=== PATIENT | female | born 1985 | race Caucasian/White ===

== ENCOUNTER 2018-08-02 13:22 | Inpatient (IN) ==
[2018-08-02 13:53] LABS: Basophils # (auto) 0.04 K/uL (0-0.2); Basophils % (auto) 0.3 %; Eosinophils % (auto) 1.3 %; Hematocrit (blood only) 33.4 % (37-47); Hemoglobin 11.5 g/dL (12.0-16.0); Immature Granulocytes # (auto) 0.26 K/uL (0.00-0.02); Immature Granulocytes % (auto) 1.7 %; Lymphocytes # (auto) 2.63 K/uL (1.2-3.4); Lymphocytes % (auto) 17.5 %; Mean Corpuscular Volume 86.5 fL (80-100); Mean Platelet Volume 9.8 fL (7.4-10.4); Monocytes # (auto) 1.17 K/uL (0.11-0.59); Monocytes % (auto) 7.8 %; Neutrophils # (auto) 10.77 K/uL (1.4-6.5); Neutrophils % (auto) 71.4 %; Platelet Count 367 K/uL (130-400); RDW Coefficient of Variation 14.3 % (11.5-14.5); RDW Standard Deviation 44.6 fL (36.4-46.3); Red Blood Count 3.86 M/uL (4.2-5.4); White Blood Count 15.07 K/uL (4.8-10.8)
[2018-08-02 13:56] LABS: Mean Corpuscular Hgb Conc 34.4 g/dL (32-36)
--- NOTE | 2018-08-02 14:01 | History & Physical Report ---
Date of Service August 02, 2018 Assessment & Plan (1) Hypertension affecting : Noelle is a 32-year-old who presents at 37+5 (estimated delivery date 08/18/2018) as a referral from the outpatient office for hypertension with known protein in the urine. She has had gestational proteinuria without hypertension on prior OB visits of the third trimester and was noted to have 1616 mg of protein over 24 hours at her 31-week check. - BP on admit after resting for >5 minutes is 147/88 - GBS positive, GDMDC, blood type A+, rubella immune. - Monitoring - Protein/Cr ratio urine - Check Transaminases (AST/ALT) - Check CBC/Plts - Observe on monitor for preeclampsia, follow BP over next 4 hours - No ocular or RUQ clinical symptoms at this time (2) Proteinuria affecting : (3) 37 weeks gestation of : History of Present Illness Primary Care Provider: Teja Brady Noelle is a 32-year-old who presents at 37+5 (estimated delivery date 08/18/2018) as a referral from the outpatient office for hypertension with known protein in the urine. She has had gestational proteinuria without hypertension on prior OB visits of the third trimester and was noted to have 1616 mg of protein over 24 hours at her 31-week check. GBS positive, GDMDC, blood type A+, rubella immune. She reports over the last 3 days she has had increased swelling bilaterally in her lower legs, feet, and ankles. She is also had some feelings of increased cramping in her legs bilaterally. She denies any headache. She endorses some visual floaters, but no flashers or change in visual acuity. She denies right upper quadrant pain. Endorses nausea once to twice per day without vomiting. Denies numbness, tingling. She denies vaginal bleeding. She notes a slight change in increase in her vaginal discharge over the last few days which has become slightly more green and mucousy. She notes she was recently treated for UTI, is no longer on antibiotic treatment. She is felt slightly decreased movement over the last few days, but notes she has felt at least 10 movements per hour. Endorses some cramping, but no contractions. She last ate a few hours ago, just before presentation to clinic. PMHx: She is a past medical history of gestational diabetes diet-controlled, group B strep positive, tobacco abuse, and recent UTI. She denies any history of other medical problems including asthma, migraines, hypertension, clotting/bleeding disorders. Her gestational diabetes is diet controlled, she checks her sugars 1 hour past meals notes that they are in the 130s lately. SHX: [place] teeth extraction. No history of reactions to anesthesia. No other surgeries. She takes a vitamin and Zyrtec daily. No other medications. No known drug allergies. No food allergies. She is an active smoker, has cut down to about 1/2 pack/day. Denies alcohol or recreational substance use including marijuana and cocaine. Allergies Allergy/AdvReac Type Severity Reaction Status Date / Time No Known Allergies Allergy Unverified 08/02/18 13:51 Home Medications Home Medications Medication Instructions Recorded Confirmed Type PNV cmb#95-ferrous fumarate-FA 1 tab PO DAILY 08/02/18 08/02/18 History [] cetirizine [Zyrtec] 10 mg PO DAILY 08/02/18 08/02/18 History Patient History Medical History Constipation Gestational diabetes diet controlled Gestational proteinuria H/O wisdom tooth extraction as a teenager Urinary tract infection Had in begining of Social History Preferred Language: Italian Hat Marker Required: No Beliefs That Will Affect Care: None marital status: Current Living Situation: Spouse Current Living Situation Comment: lives with and his 9 year old daughter (shared custody) Other Information That Helps Us Care for You: No Feels Safe at Home: Yes Safety Concerns: Feels Safe At This Time Smoking Status: Current every day smoker Tobacco Type: cigarettes Cigarettes Per Day: 5-8 Hx Alcohol Use: No Hx Substance Use: No Review of Systems no fever, no chills, no body aches and no weakness + spots in vision (Occasional dark floaters); no blind spots, no diplopia, not seeing flashes and no worsening vision no ear pain, no nasal congestion, no sinus pain/pressure, no sore throat, no dysphagia and no problem reported no cough, no chest congestion, no dyspnea, no pain on inspiration, no pain with cough and no sputum production + edema; no chest pain, no chest pain at rest, no chest pain with activity, no dyspnea, no orthopnea, no palpitations, no lightheadedness, no syncope and no calf pain + nausea; no abdominal pain, no vomiting, no constipation and no diarrhea/loose stools no dysuria, no difficulty urinating and no vaginal itching + back pain; no neck pain, no myalgia, no muscle weakness and no body aches no rash, no lesions, no new lesions and no changing lesions + tingling (intermittent tingling x3 days with swelling in her feet); no gait abnormality, no localized weakness, no loss of sensation, no numbness, no paresthesia, no dizziness, no headache(s) and no confusion no flushing no easy bleeding, no easy bruising and no night sweats Physical Exam Physical Exam: General: A&Ox3. NAD. Cooperative. No skin lesions/bruising/petechiae. HEENT: Atraumatic, normocephalic. Pulm: CTAB A&P. -wheezes, -rales, -rhonchi. Symmetrical chest rise. No increase work of breathing. No respiratory distress. Cardiac: RRR, -mrg. Radial pulses intact and symmetrical. Abdominal: Nontender, distention consistent with third trimester of . No RUQ tenderness. Extremities: Bilateral pedal, ankle, distal calf edema. No warmth, erythema, tenderness to palpation, or asymmetry. Neuro: Pupils equal and reactive to light and accommodation bilaterally. Visual acuity grossly intact. Extraocular movements intact. No facial asymmetry. Facial sensation intact in all distributions. Sensation to soft touch intact in all 4 distal extremities without asymmetry. Patellar and biceps DTR 2+ bilaterally. Cyber Software Engineer strength, elbow flexion 5/5. Dorsiflexion/plantar flexion 5/5. cervix exam: 3cm/80%/-1 soft/ posterior Results & Data Vital Signs (Past 12 Hours) Vital Signs Pulse BP 08/02/18 13:36 83 147/88 H Monitoring External Monitor Category 1 tracing. Baseline approximately 145 bpm. Moderate variability. Accelerations present, no decelerations noted. Tocodynamometer No regular contractions. Supervising Physician Co-Signing Physician Notes Resident Physician Supervision Note: I interviewed and examined the patient. Discussed with Dr. Solomon Hawkins PGY1 and agree with findings and plan as documented in the note. Any exceptions or clarifications are listed here: Because systolics are all consistently over 140. PIH labs are all normal .so meets criteria for mild pre-eclampsia and we will begin IOL. Documented By: Jane Riojas MD, FACOG
[2018-08-02 14:09] LABS: Alanine Aminotransferase 15 U/L (12-78); Aspartate Aminotransferase 9 U/L (15-37); Est GFR (African American) 137.4; Est GFR (Non-African American) 118.5
[2018-08-02 15:12] LABS: Creatinine Urine Random 49.9 mg/dl
[2018-08-02 15:13] LABS: Total Protein Urine Random 432.5 mg/dl (0-11.9)
[2018-08-02] MEDS ORDERED: OXYTOCIN 30 UNITS/500 ML BAG IV PRN ×2 (15:17→15:20)
[2018-08-02] MEDS: LACTATED RINGER'S 1,000 ML IV PRN ×2 (15:30→21:23)
[2018-08-02] MEDS ORDERED: PENICILLIN G POTASSIUM 6 MU in DEXTROSE 5% 250 ML IV ONE (15:30)
[2018-08-02] MEDS: PENICILLIN G POTASSIUM 3 MU in DEXTROSE 5% 100 ML IV PRN ×2 (19:55→23:54)
[2018-08-02] MEDS ORDERED: ePHEDrine sulfate 50 MG/ML AMP ONE (21:04)
[2018-08-02] MEDS ORDERED: BUPIVACAINE 0.25% 30 ML VIAL ONE (21:04)
[2018-08-02] MEDS ORDERED: fentaNYL citrate 100 MCG/2 ML VIAL ONE (21:05)
[2018-08-02] MEDS ORDERED: fentaNYL 2MCG/ML ROPIV 1.25MG/ML 100 ML BAG EPI ONE (21:05)
--- NOTE | 2018-08-02 21:23 | Anesthesiology Consultation ---
Date of Service August 02, 2018 Assessment & Plan Chart Review Chart Review: Patient NOT seen in Pre Admission Testing and Acceptable Risk for Labor Epidural Consults Requested none ASA ASA3 Proposed Anesthesia Anesthesia Type: Labor Epidural and CSE Risk / Benefits Reviewed With: PT / POA / Parent / Guardian, Accepts Plan and Informed Consent Obtained History Height/Weight Height: 5 ft 4 in Weight: 104.383 kg Allergies Allergy/AdvReac Type Severity Reaction Status Date / Time No Known Allergies Allergy Unverified 08/02/18 13:51 Medications Home Medications Medication Instructions Recorded Confirmed Last Taken PNV cmb#95-ferrous fumarate-FA 1 tab PO DAILY 08/02/18 08/02/18 08/01/18 23:00 [] cetirizine [Zyrtec] 10 mg PO DAILY 08/02/18 08/02/18 08/01/18 23:00 Active Medications Generic Name Dose Route Start Last Admin Trade Name Freq PRN Reason Stop Dose Admin Oxytocin 30 units in 500 mls @ 1 mls/hr 08/02/18 15:20 08/02/18 21:18 Pitocin IV 08/04/18 15:19 0.06 units/hr .Q24H PRN 1 mls/hr Labor Induction/Augmentation Administration Protocol 0.06 UNITS/HR Lactated Ringer's 1,000 mls @ 125 mls/hr 08/02/18 15:17 08/02/18 21:23 Lr IV 08/04/18 15:16 999 mls/hr .Q8H PRN Administration L&D Protocol Protocol Penicillin G Potassium 3 mu/ 106 mls @ 100 mls/hr 08/02/18 15:17 08/02/18 20:59 Dextrose IV 08/12/18 15:16 Infused Q4H PRN Infusion Give until delivery NPO Date Last Intake of Fluids: 08/02/18 Time Last Intake of Fluids: 20:30 Date Last Intake of Solids: 08/02/18 Time Last Intake of Solids: 12:00 Past Medical History Medical History Constipation Gestational diabetes diet controlled Gestational proteinuria Urinary tract infection Had in begining of Exercise / Class Metabolic Activity II 4-5 Yardwork/Stairs/Walk up hill Past Surgical History Surgical History H/O wisdom tooth extraction as a teenager Past Anesthesia History No Hx of Anesthesia Complications and No Family Hx of Anesthesia Complications History of PONV No Hx of PONV Social History Smoking Status: Current every day smoker tobacco type: cigarettes Smoking cigarettes per day: 5-8 Hx Alcohol Use: No Hx Substance Use: No substance use type: does not use Review of Systems no chest pain or sob Physical Exam Vital Signs Last Vital Signs Temp 36.9 C 08/02/18 19:05 Pulse 75 08/02/18 21:20 Resp 20 08/02/18 19:05 BP 132/63 08/02/18 20:21 Pulse Ox 97 08/02/18 21:20 Constitutional + morbidly obese ENMT Mouth: no TMJ abnormality Thyromental Distance: > or= 3.5 Finger Breadths Mallampati Class: II Neck normal visual inspection and + thick neck Respiratory normal respiratory effort Auscultation: lungs clear to auscultation bilaterally Cardiovascular Rate/Rhythm: regular rate and regular rhythm Musculoskeletal Spine: normal cervical ROM Neurologic moves all extremities Psychiatric Orientation: alert and oriented x 3 Testing Laboratory Results WBC 15 Hgb 11.5 plt 367
[2018-08-02] MEDS ORDERED: ONDANSETRON INJ 2 MG/ML 2 ML VIAL IV PRN (21:44)
[2018-08-02] MEDS ORDERED: DiphenhydrAMINE HCL 50 MG/ML VIAL IV PRN (21:44)
[2018-08-02] MEDS ORDERED: fentaNYL 2MCG/ML ROPIV 1.25MG/ML 100 ML BAG EPI PRN (21:44)
[2018-08-02] MEDS ORDERED: ePHEDrine sulfate 50 MG/ML AMP IV PRN (21:44)
[2018-08-02] MEDS ORDERED: NALOXONE HCL 0.4 MG/1 ML VIAL/CARP IV PRN (21:44)
[2018-08-02] MEDS ORDERED: NALOXONE HCL 1 MG in SODIUM CHLORIDE 0.9% 1000ML 1,000 ML IV PRN (21:44)
[2018-08-02] MEDS ORDERED: NALBUPHINE HCL INJ 10 MG/ML AMP IV PRN (21:44)
[2018-08-03] MEDS: PENICILLIN G POTASSIUM 3 MU in DEXTROSE 5% 100 ML IV PRN ×2 (03:56→08:21)
[2018-08-03] MEDS: LACTATED RINGER'S 1,000 ML IV PRN ×2 (04:54→09:29)
--- NOTE | 2018-08-03 10:34 | Procedure Note ---
Vaginal Delivery Summary Date of Service August 03, 2018 Vaginal Delivery Summary Vaginal Delivery Summary: Pre-delivery diagnoses: 32yo @ 37 6/7, preeclampsia with mild features, GBS+, GDMA1 Post-delivery diagnoses: same Procedure: Spontaneous vaginal delivery, repair of 1st degree perineal laceration Surgeon: Sandra Renteria DO Complications: none Findings: Viable . Apgars: 7/9. Weight pending, please see nursery records Estimated blood loss: 300ml Description of delivery: The patient progressed to complete with epidural anesthesia. She then began to push. She spontaneously vaginally delivered a viable from the cephalic presentation. The head delivered in EMILEE position. The anterior shoulder delivered, followed by the posterior shoulder, followed by the body. No nuchal cord noted. The baby was placed on mother's abdomen and a spontaneous cry was heard. Delayed cord clamping was employed, and the cord was doubly clamped and cut. A segment was retained for cord gases. Cord blood was obtained. The placenta was delivered spontaneously intact with a 3-vessel cord. The uterus and vagina were swept of clots and debris. IV pitocin was given. The uterus became firm. The cervix, vagina, and perineum were inspected and a first degree perineal lacerations was noted and repaired in standard fashion. Excellent hemostasis was observed. The mother and baby are recovering in stable and good condition in the room. Sponge, needle, and instrument counts were correct x 2. Sandra Renteria DO [facility] [place]
--- NOTE | 2018-08-03 11:03 | Anesthesia Procedure Note ---
Date of Service August 03, 2018 Anesthesia Post Epidural Note Vital Signs Vital Signs: Temp Pulse Resp BP Pulse Ox 37.2 C 82 22 152/82 H 97 08/03/18 08:02 08/03/18 10:53 08/03/18 08:02 08/03/18 10:53 08/03/18 10:05 Notes Mental Status: alert / awake / arousable and participated in evaluation Nausea / Vomiting: adequately controlled Pain: adequately controlled Airway Patency, RR, SpO2: stable & adequate BP & HR: stable & adequate Hydration State: stable & adequate Neuraxial Anesthesia: was administered and sensory block is resolving Anesthetic Complications: no major complications apparent Epidural: Removed without complications and With tip intact
[2018-08-03] MEDS ORDERED: OXYCODONE/ACETAMINOPHEN 5mg/325mg TAB PO PRN (11:05)
[2018-08-03] MEDS ORDERED: BISACODYL 10 MG SUPP PR PRN (11:05)
[2018-08-03] MEDS ORDERED: SUPERCREAM 0.870% 15 GM JAR EXT PRN (11:05)
[2018-08-03] MEDS ORDERED: IBUPROFEN 600 MG TAB PO PRN (11:05)
[2018-08-03] MEDS ORDERED: HYDROCORTISONE ACETATE 25 MG SUPP PR PRN (11:05)
[2018-08-03] MEDS ORDERED: ACETAMINOPHEN 325 MG TAB PO PRN (11:05)
[2018-08-03] MEDS ORDERED: OXYTOCIN 30 UNITS/500 ML BAG IV PRN (11:05)
[2018-08-03] MEDS ORDERED: BENZOCAINE 20% AER SPR 82.5 GM CAN EXT PRN (11:05)
[2018-08-03] MEDS: DOCUSATE SODIUM 100 MG CAP PO SCH (21:08)
[2018-08-04 06:34] LABS: Hematocrit (blood only) 28.9 % (37-47); Hemoglobin 9.8 g/dL (12.0-16.0); Mean Corpuscular Hgb Conc 33.9 g/dL (32-36); Mean Platelet Volume 9.9 fL (7.4-10.4); Platelet Count 279 K/uL (130-400); RDW Coefficient of Variation 14.3 % (11.5-14.5); RDW Standard Deviation 45.3 fL (36.4-46.3); Red Blood Count 3.32 M/uL (4.2-5.4)
[2018-08-04 06:58] LABS: Albumin Level 1.7 gm/dl (3.4-5.0); Calcium 8.8 mg/dl (8.5-10.1); Creatinine Clr Calc Pharmacy 182.7 ml/min; Est GFR (African American) 147.7; Est GFR (Non-African American) 127.4; Potassium 3.8 mmol/L (3.5-5.1)
[2018-08-04 07:00] LABS: Albumin Globulin Ratio 0.5 (0.9-2); Bilirubin,Total 0.2 mg/dl (0.2-1); Globulin 3.5 gm/dl (2.5-4.0); Total Protein 5.2 gm/dl (6.4-8.2)
[2018-08-04] MEDS: DOCUSATE SODIUM 100 MG CAP PO SCH ×2 (08:49→21:01)
[2018-08-04] MEDS: PRENATAL VITAMIN 1 TAB PO SCH (08:50)
[2018-08-04] MEDS: CETIRIZINE HCL 10 MG TABLET PO SCH (08:50)
[2018-08-04] MEDS ORDERED: DIPHTHERIA/TETANUS/PERTUSSIS 0.5 ML SYR/VIAL IM ONE (09:00)
--- NOTE | 2018-08-04 09:00 | Obstetrical Progress Note ---
Date of Service August 04, 2018 Assessment & Plan (1) Vaginal delivery: PPD#1 doing well. Plan for DC home tomorrow. Continue routine care. Subjective Ambulation: ambulating normally Voiding: no voiding problems Diet Tolerance:: regular diet Lochia:: Moderate Feeding Type:: breast feeding Physical Exam Constitutional WD/WN, vitals as above no acute distress Respiratory normal respiratory effort Cardiovascular Rate/Rhythm: regular rate and regular rhythm Gastrointestinal (Abdomen) Inspection/Auscultation: abdomen normal to inspection; abdomen not distended Percussion/Palpation: abdomen soft Genitourinary OB Exam Abdomen: + fundal height Fundus: + firm; not tender Results & Data Vital Signs (Past 12 Hours) Vital Signs Temp Pulse Resp BP Pulse Ox 08/04/18 07:35 36.9 C 84 16 129/79 96 08/04/18 03:20 36.6 C 78 24 138/80 95 08/03/18 23:15 36.7 C 76 20 125/80 97
[2018-08-04] MEDS ORDERED: BISACODYL 5 MG TABEC PO SCH (20:00)
--- NOTE | 2018-08-05 06:48 | Obstetrical Progress Note ---
Date of Service <Lopez Sheba Mueller DO - Last Filed: 08/05/18 06:51> August 05, 2018 Assessment & Plan <Lopez Sheba Mueller DO - Last Filed: 08/05/18 06:51> (1) (spontaneous vaginal delivery): -vital signs reviewed and WNL -last Hgb 9.8 --> ferrous sulfate ordered -Blood type: A+, GBS+, Rubella Immune -pt doing well clinically -encourage ambulation, monitor and control pain with motrin tylenol, cont regular diet, monitor lochia -cont encourage breast/bottle feeding -plan for d/c today Subjective <Lopezsheeba Mueller DO - Last Filed: 08/05/18 06:51> 33 y/o PPD2 found in bed this morning in NAD. Reports no acute overnight events. Pt states that she has no pain other than appropriate soreness. Tolerating PO intake without N/V. Able to ambulate without issue. She is bottle feeding without issue. No issues with voiding, has had a BM which was normal, passing gas. No other acute concerns or complaints. Review of Systems All systems reviewed & are unremarkable except as noted in HPI & below Physical Exam <Lopezsheeba Mueller DO - Last Filed: 08/05/18 06:51> Constitutional WD/WN, vitals as above Respiratory normal respiratory effort, lungs clear to auscultation Cardiovascular RRR, no murmur, no edema Gastrointestinal (Abdomen) mild abd tenderness Difficulty ascertaining fundus height, please defer to attending note Skin no rashes, warm and dry Psychiatric A+Ox3, euthymic affect Lymphatic no LE swelling, no calf tenderness Results & Data <Lopez Sheba Mueller, DO - Last Filed: 08/05/18 06:51> Vital Signs (Past 12 Hours) Vital Signs Temp Pulse Resp BP Pulse Ox 08/04/18 23:00 36.7 C 76 20 128/84 98 08/04/18 19:00 36.7 C 88 20 131/82 99 Laboratory Results Laboratory Results - last 24 hr 08/04/18 06:23 Sodium 140 Potassium 3.8 Chloride 111 H Carbon Dioxide 23 Anion Gap 6.0 BUN 11 Creatinine 0.53 L Est Cr Clr Drug Dosing 182.7 Est GFR ( Amer) 147.7 Est GFR (Non-Af Amer) 127.4 BUN/Creatinine Ratio 20.0 Glucose 76 Calcium 8.8 Total Bilirubin 0.2 AST 15 ALT 12 Alkaline Phosphatase 70 Total Protein 5.2 L Albumin 1.7 L Globulin 3.5 Albumin/Globulin Ratio 0.5 L Medications Administered Current Inpatient Medications Acetaminophen (Tylenol) 650 mg PO Q6H PRN PRN Reason: Pain/GAN/Fever Stop: 09/02/18 11:04 Benzocaine (Dermoplast Pain Relieving [place]) 1 appln EXT PRN PRN PRN Reason: Perineal Discomfort Stop: 09/02/18 11:04 Last Admin: 08/03/18 22:49 Dose: 1 appln Documented by: Bisacodyl (Dulcolax) 10 mg TX DAILY PRN PRN Reason: No BM on 2nd post- day Stop: 09/02/18 11:04 Cetirizine HCl (Zyrtec) 10 mg PO DAILY [facility] Stop: 09/03/18 08:59 Last Admin: 08/04/18 08:50 Dose: 10 mg Documented by: Cocaine HCl (Supercream 0.870%) 1 gm EXT BID PRN PRN Reason: Hemorrhoidal Inflammation Stop: 08/17/18 11:04 Last Admin: 08/03/18 22:49 Dose: 1 appln Documented by: Docusate Sodium (Colace) 100 mg PO BID [facility] Stop: 09/02/18 20:59 Last Admin: 08/04/18 21:01 Dose: 100 mg Documented by: Hydrocortisone (Anusol Hc) 25 mg TX BID PRN PRN Reason: Hemorrhoidal Inflammation Stop: 09/02/18 11:04 Oxytocin (Pitocin) 30 units in 500 mls @ 333.333 mls/hr IV .Q1H30M PRN; Prot ocol PRN Reason: Bleeding Control Stop: 09/02/18 11:04 Ibuprofen (Motrin) 600 mg PO Q4H PRN PRN Reason: Pain/GAN/Cramping/Fever Stop: 09/02/18 11:04 Last Admin: 08/03/18 21:08 Dose: 600 mg Documented by: Oxycodone/Acetaminophen (Percocet 5mg/325mg) 1 tab PO Q4H PRN PRN Reason: Pain not relieved by... Stop: 08/17/18 11:04 Prenat Multivit/[place]/Iron/Folic Ac ( Vitamin) 1 tab PO QAM HEATHER Stop: 09/03/18 08:59 Last Admin: 08/04/18 08:50 Dose: 1 tab Documented by: <Sandra Renteria DO - Last Filed: 08/05/18 07:53> Co-Signing Physician Notes Resident Physician Supervision Note: I was present with Dr. Mueller during the history and exam. I discussed the case with the resident and agree with the findings and plan as documented in the note. Any exceptions or clarifications are listed here: PPD#2 doing well. Elevated BP this AM, but other blood pressures have been normal. Will recheck before discharge. Patient to followup in office in 1 week for BP check. Documented By: Sandra Renteria DO Resident Activity Tracking <Lopez Mueller DO - Last Filed: 08/05/18 06:51> Resident Involvement: Resident Care Provided Care Provided: OB Delivery
[2018-08-05] MEDS: DOCUSATE SODIUM 100 MG CAP PO SCH (08:58)
[2018-08-05] MEDS: PRENATAL VITAMIN 1 TAB PO SCH (08:58)
[2018-08-05] MEDS: CETIRIZINE HCL 10 MG TABLET PO SCH (08:58)
[2018-08-05] MEDS ORDERED: FERROUS SULFATE 325 MG TAB PO SCH (09:00)
--- NOTE | 2018-08-08 04:25 | Communication Note ---
Date of Service: August 08, 2018 I was contacted by an ER physician in [place] notifying me that Noelle has just arrived to their ER with BP 190s/110s, symptom of upper abdominal / flank pain, creatinine 0.89 and uric acid 8.1. Platelets reportedly "in the 400s" and liver enzymes reportedly "normal." There is also some concern for pyelonephritis on a CT scan done there per this physician. They do not have OB services and she is obviously day 4; he asks to transfer the patient to our location for that reason. At this time the patient is in hypertensive urgency with likely severe preeclampsia. Her uric acid correlates with significant seizure risk and her BP is unstable / unsafe for transport. I recommended that he consult critical care at his location if he needed assistance with acute stabilization, and also talked him through some immediate measures to institute, including magnesium bolus/maintenance therapy and labetalol IV with recommended dose sequence. I asked that he contact us again once she is stable for transport with BP outside the severe range, magnesium therapy and symptom improvement, so that we can arrange that for her ongoing care.
== END 2018-08-05 18:29 | disposition home or self-care (01) | DRG 807 ==
LOC: OPB 13:22 → 4S1 13:24 → 4S2 08-03 12:00

== ENCOUNTER 2018-08-08 10:40 | Inpatient (IN) ==
[2018-08-08] MEDS ORDERED: LABETALOL HCL IV 5 MG/ML 20ML IV STA (10:48)
[2018-08-08] MEDS ORDERED: MAGNESIUM SULFATE 4GM / WTR 100 ML BAG IV ONE (10:53)
[2018-08-08 11:18] LABS: Hematocrit (blood only) 31.8 % (37-47); Hemoglobin 10.7 g/dL (12.0-16.0); Mean Corpuscular Volume 88.1 fL (80-100); Mean Platelet Volume 9.5 fL (7.4-10.4); Platelet Count 411 K/uL (130-400); RDW Coefficient of Variation 13.8 % (11.5-14.5); RDW Standard Deviation 44.7 fL (36.4-46.3); Red Blood Count 3.61 M/uL (4.2-5.4); White Blood Count 14.97 K/uL (4.8-10.8)
[2018-08-08] MEDS: LACTATED RINGER'S 1,000 ML IV PRN (11:25)
[2018-08-08 11:26] LABS: Mean Corpuscular Hgb Conc 33.6 g/dL (32-36)
[2018-08-08] MEDS: MAGNESIUM SULFATE / WTR 40 GM/1,000 ML BAG IV SCH (11:34)
[2018-08-08 11:42] LABS: Albumin Level 2.1 gm/dl (3.4-5.0); BUN Creatinine Ratio 19.5 (10-20); Calcium 9.2 mg/dl (8.5-10.1); Creatinine Clr Calc Pharmacy 120.7 ml/min; Est GFR (African American) 117.4; Est GFR (Non-African American) 101.3; Potassium 3.7 mmol/L (3.5-5.1)
[2018-08-08 11:45] LABS: Albumin Globulin Ratio 0.5 (0.9-2); Bilirubin,Total 0.2 mg/dl (0.2-1); Globulin 3.9 gm/dl (2.5-4.0)
--- NOTE | 2018-08-08 11:45 | History & Physical Report ---
Date of Service August 08, 2018 Assessment & Plan (1) Pre-eclampsia, severe, delivered: Admit to L&D. For BPs, will give labetalol if BP > 160/105. Patient already rec'd magnesium bolus, will restart mag at 2g/hr. Preeclampsia precautions - conway catheter, bedrest, clear liquids. Will check preeclampsia labs - CBC, CMP, uric acid. Check mag level. Will repeat these labs Q6h. Patient is afebrile, and low back pain has resolved, however will treat for suspicion of pyelonephritis with a dose of rocephin. Anticipate will give magnesium for 24h. History of Present Illness Chief Complaint: preeclampsia Primary Care Provider: Teja Brady 33yo PPD #4 presents as transfer from [facility]. She presented there yesterday evening with complaint of left lower back pain. On arrival there, she was found to have elevated BPs with systolics in 190s. She denied headache, RUQ pain. +lower extremity swelling. She underwent CT scan, which showed left perinephric fat stranding with urothelial hyperenhancement. She was diagnosed with pyelonephritis at [facility] and given a dose of IV cipro for treatment. Because of her blood pressures, apparently the ER at [facility] attempted to admit the patient to the internal medicine service, but neither the hospitalist nor the critical care physicians felt that she should be admitted to those services because she was . Therefore, the ER physician at [facility] asked Dr Olvera (last night's OBGYN on-call at [facility]) to accept the patient as transfer. Patient at the time was unable to be transferred due to unstable blood pressures, but was brought to [facility] this morning. She rec'd 4g bolus of magnesium at [facility] and then 2g/hr magnesium, IV labetalol for BP management. The magnesium was then stopped prior to transport. Patient's labs at [facility] 08/08 0140am are as follows: WBC 18.9, Hgb 10.8, Hct 32, Plt 374. Creatinine 0.8, AST 21, ALT 25, Mag 1.9, Uric Acid 8.1. Urinalysis protein 2+, blood 3+, no nitrites. Induction was performed for delivery 08/04/18 for preeclampsia without severe features. She delivered by spontaneous vaginal delivery, was discharged to home PPD#2. She is bottle feeding. Minimal lochia. Allergies Allergy/AdvReac Type Severity Reaction Status Date / Time No Known Allergies Allergy Unverified 08/02/18 13:51 Home Medications Home Medications Medication Instructions Recorded Confirmed Type PNV cmb#95-ferrous fumarate-FA 1 tab PO DAILY 08/02/18 08/08/18 History [] Zyrtec 10 mg PO DAILY 08/02/18 08/08/18 History Patient History Medical History Constipation Gestational diabetes diet controlled Gestational proteinuria Urinary tract infection Had in begining of Surgical History H/O wisdom tooth extraction as a teenager Social History Preferred Language: Turkish Communication Ability: Effective Beliefs That Will Affect Care: None marital status: Current Living Situation: Spouse Current Living Situation Comment: lives with and his 9 year old daughter (shared custody) Other Information That Helps Us Care for You: No Feels Safe at Home: Yes Safety Concerns: Feels Safe At This Time Smoking Status: Current some day smoker Tobacco Type: cigarettes Cigarettes Per Day: 5-8 Do You Dip or Chew Tobacco: No Second Hand Exposure: No Tobacco Cessation Education Requested by Patient: No Hx Alcohol Use: No Hx Substance Use: No Review of Systems All systems reviewed & are unremarkable except as noted in HPI & below Physical Exam Constitutional: WD/WN, vitals as above well developed and well nourished; no acute distress Respiratory: normal respiratory effort, lungs clear to auscultation Cardiovascular: RRR, no murmur, no edema Extremities: + pedal edema (1+ bilateral) Gastrointestinal (Abdomen): normal bowel sounds, soft, nontender, no hepatosplenomegaly Neurologic: patellar DTR's 2+ bilat, sensation intact No clonus. Psychiatric: A+Ox3, euthymic affect Results & Data Vital Signs (Past 12 Hours) Vital Signs Temp Pulse Resp BP 08/08/18 11:17 70 160/90 H 08/08/18 11:02 72 157/84 H 08/08/18 10:47 36.9 C 70 20 183/96 H
[2018-08-08] MEDS ORDERED: cefTRIAXone SODIUM 350 MG/ML IM IM ONE (12:04)
[2018-08-08] MEDS ORDERED: cefTRIAXone SODIUM 1,000 MG in SYRINGE 0 ML IM SCH (12:30)
[2018-08-08 17:43] LABS: Basophils # (auto) 0.04 K/uL (0-0.2); Basophils % (auto) 0.3 %; Eosinophils # (auto) 0.39 K/uL (0-0.5); Hematocrit (blood only) 31.3 % (37-47); Hemoglobin 10.9 g/dL (12.0-16.0); Immature Granulocytes # (auto) 0.16 K/uL (0.00-0.02); Immature Granulocytes % (auto) 1.2 %; Lymphocytes # (auto) 3.05 K/uL (1.2-3.4); Lymphocytes % (auto) 23.7 %; Mean Corpuscular Hgb Conc 34.8 g/dL (32-36); Mean Corpuscular Volume 86.7 fL (80-100); Mean Platelet Volume 9.7 fL (7.4-10.4); Monocytes # (auto) 0.94 K/uL (0.11-0.59); Monocytes % (auto) 7.3 %; Neutrophils # (auto) 8.27 K/uL (1.4-6.5); Neutrophils % (auto) 64.5 %; Platelet Count 404 K/uL (130-400); RDW Coefficient of Variation 13.8 % (11.5-14.5); RDW Standard Deviation 43.9 fL (36.4-46.3); Red Blood Count 3.61 M/uL (4.2-5.4); White Blood Count 12.85 K/uL (4.8-10.8)
[2018-08-08 18:09] LABS: Albumin Level 2.1 gm/dl (3.4-5.0); BUN Creatinine Ratio 19.6 (10-20); Calcium 8.9 mg/dl (8.5-10.1); Creatinine Clr Calc Pharmacy 149.5 ml/min; Est GFR (African American) 138.5; Est GFR (Non-African American) 119.5; Potassium 3.6 mmol/L (3.5-5.1)
[2018-08-08 18:12] LABS: Albumin Globulin Ratio 0.6 (0.9-2); Bilirubin,Total 0.2 mg/dl (0.2-1); Globulin 3.8 gm/dl (2.5-4.0); Total Protein 5.9 gm/dl (6.4-8.2)
[2018-08-08] MEDS ORDERED: ACETAMINOPHEN 500 MG TAB PO STA (20:27)
[2018-08-08 23:02] LABS: Basophils # (auto) 0.04 K/uL (0-0.2); Basophils % (auto) 0.3 %; Eosinophils # (auto) 0.45 K/uL (0-0.5); Eosinophils % (auto) 3.5 %; Hemoglobin 10.1 g/dL (12.0-16.0); Immature Granulocytes # (auto) 0.18 K/uL (0.00-0.02); Immature Granulocytes % (auto) 1.4 %; Lymphocytes % (auto) 24.3 %; Mean Corpuscular Hgb Conc 33.7 g/dL (32-36); Mean Corpuscular Volume 87.7 fL (80-100); Mean Platelet Volume 9.3 fL (7.4-10.4); Monocytes % (auto) 7.1 %; Neutrophils # (auto) 8.07 K/uL (1.4-6.5); Neutrophils % (auto) 63.4 %; Platelet Count 394 K/uL (130-400); RDW Coefficient of Variation 13.9 % (11.5-14.5); RDW Standard Deviation 45.1 fL (36.4-46.3); Red Blood Count 3.42 M/uL (4.2-5.4); White Blood Count 12.74 K/uL (4.8-10.8)
[2018-08-08 23:37] LABS: Albumin Globulin Ratio 0.5 (0.9-2); Albumin Level 1.9 gm/dl (3.4-5.0); BUN Creatinine Ratio 15.2 (10-20); Bilirubin,Total 0.1 mg/dl (0.2-1); Calcium 8.3 mg/dl (8.5-10.1); Creatinine Clr Calc Pharmacy 120.7 ml/min; Est GFR (African American) 117.4; Est GFR (Non-African American) 101.3; Globulin 3.8 gm/dl (2.5-4.0); Potassium 3.7 mmol/L (3.5-5.1); Total Protein 5.7 gm/dl (6.4-8.2)
[2018-08-09] MEDS: LACTATED RINGER'S 1,000 ML IV PRN (00:08)
[2018-08-09 05:42] LABS: Basophils # (auto) 0.03 K/uL (0-0.2); Basophils % (auto) 0.3 %; Eosinophils # (auto) 0.39 K/uL (0-0.5); Eosinophils % (auto) 3.6 %; Hematocrit (blood only) 30.6 % (37-47); Hemoglobin 10.2 g/dL (12.0-16.0); Immature Granulocytes # (auto) 0.12 K/uL (0.00-0.02); Immature Granulocytes % (auto) 1.1 %; Lymphocytes # (auto) 2.65 K/uL (1.2-3.4); Lymphocytes % (auto) 24.4 %; Mean Corpuscular Hgb Conc 33.3 g/dL (32-36); Mean Corpuscular Volume 87.2 fL (80-100); Mean Platelet Volume 9.6 fL (7.4-10.4); Monocytes # (auto) 0.76 K/uL (0.11-0.59); Neutrophils # (auto) 6.89 K/uL (1.4-6.5); Neutrophils % (auto) 63.6 %; Platelet Count 388 K/uL (130-400); RDW Coefficient of Variation 14.2 % (11.5-14.5); RDW Standard Deviation 45.2 fL (36.4-46.3); Red Blood Count 3.51 M/uL (4.2-5.4); White Blood Count 10.84 K/uL (4.8-10.8)
[2018-08-09 05:54] LABS: BUN Creatinine Ratio 14.7 (10-20); Creatinine Clr Calc Pharmacy 132.6 ml/min; Est GFR (African American) 131.5; Est GFR (Non-African American) 113.5; Potassium 3.7 mmol/L (3.5-5.1)
[2018-08-09 05:57] LABS: Albumin Globulin Ratio 0.5 (0.9-2); Bilirubin,Total 0.2 mg/dl (0.2-1); Globulin 3.7 gm/dl (2.5-4.0); Total Protein 5.7 gm/dl (6.4-8.2)
[2018-08-09] MEDS: MAGNESIUM SULFATE / WTR 40 GM/1,000 ML BAG IV SCH (06:10)
--- NOTE | 2018-08-09 07:21 | Obstetrical Progress Note ---
Date of Service <Lopez Mueller DO - Last Filed: 08/09/18 07:31> August 09, 2018 Assessment & Plan <Lopez Mueller DO - Last Filed: 08/09/18 07:31> (1) Pre-eclampsia, severe, delivered: -finish out course of IV Mg ending at 1130 -PO Labetelol after Mg. Will be d/c on labetelol -no further antibiotic tx for pyelo on d/c. Received IV Rocephin here -plan for d/c today Subjective <Lopez Mueller DO - Last Filed: 08/09/18 07:31> 33 y/o F found in bed this AM in NAD. Reports no acute overnight events. Mg running this AM. No issues voiding. Tolerating PO intake of clears. No other acute concerns or complaints. Ok with plan for d/c today. Review of Systems All systems reviewed & are unremarkable except as noted in HPI & below Physical Exam <Lopez Mueller DO - Last Filed: 08/09/18 07:31> Did not perform PE. Please defer to attending findings. Results & Data <Lopez Mueller DO - Last Filed: 08/09/18 07:31> Vital Signs (Past 12 Hours) Vital Signs Temp Pulse Resp BP Pulse Ox 08/09/18 07:17 81 97 08/09/18 07:12 79 94 08/09/18 07:07 81 95 08/09/18 07:02 89 96 08/09/18 06:57 70 166/95 H 95 08/09/18 06:52 71 95 08/09/18 06:47 65 95 08/09/18 06:42 70 94 08/09/18 06:37 75 94 08/09/18 06:32 82 95 08/09/18 06:27 68 95 08/09/18 06:22 68 95 08/09/18 06:17 81 96 08/09/18 06:12 72 95 08/09/18 06:11 72 169/93 H 08/09/18 06:07 73 95 08/09/18 06:02 74 94 08/09/18 06:00 18 08/09/18 05:57 71 96 08/09/18 05:56 72 175/92 H 08/09/18 05:53 75 173/92 H 08/09/18 05:52 81 95 08/09/18 05:47 81 96 08/09/18 05:42 88 98 08/09/18 05:37 70 95 08/09/18 05:32 76 95 08/09/18 05:27 68 96 08/09/18 05:22 70 155/91 H 96 08/09/18 05:17 73 96 08/09/18 05:14 72 160/87 H 08/09/18 05:12 66 96 08/09/18 05:08 80 182/97 H 08/09/18 05:07 86 98 08/09/18 05:06 72 183/88 H 08/09/18 05:04 81 85 L 08/09/18 05:02 64 96 08/09/18 05:00 18 08/09/18 04:59 63 171/82 H 08/09/18 04:57 69 95 08/09/18 04:54 70 86 L 08/09/18 04:52 67 95 08/09/18 04:47 70 96 08/09/18 04:42 69 96 08/09/18 04:37 68 91 08/09/18 04:32 72 97 08/09/18 04:27 71 94 08/09/18 04:25 76 88 L 08/09/18 04:22 72 94 08/09/18 04:19 78 88 L 08/09/18 04:17 68 95 08/09/18 04:12 69 94 08/09/18 04:07 70 95 08/09/18 04:03 70 154/74 H 08/09/18 04:02 74 96 08/09/18 04:00 18 08/09/18 03:59 65 185/84 H 08/09/18 03:57 72 95 08/09/18 03:52 70 95 08/09/18 03:47 66 94 08/09/18 03:42 96 H 95 08/09/18 03:37 70 95 08/09/18 03:32 68 95 08/09/18 03:27 68 94 08/09/18 03:22 73 94 08/09/18 03:17 76 94 08/09/18 03:15 36.7 C 18 08/09/18 03:12 74 94 08/09/18 03:07 73 95 08/09/18 03:02 71 95 08/09/18 02:59 69 141/74 H 08/09/18 02:57 71 94 08/09/18 02:52 72 94 08/09/18 02:47 74 94 08/09/18 02:42 73 94 08/09/18 02:37 75 94 08/09/18 02:32 72 94 08/09/18 02:27 75 95 08/09/18 02:22 77 95 08/09/18 02:17 81 96 08/09/18 02:12 73 95 08/09/18 02:07 90 97 08/09/18 02:02 101 H 152/75 H 96 08/09/18 02:00 18 08/09/18 01:59 73 169/78 H 08/09/18 01:57 77 96 08/09/18 01:52 79 94 08/09/18 01:47 69 95 08/09/18 01:42 76 97 08/09/18 01:37 76 97 08/09/18 01:33 82 87 L 08/09/18 01:32 77 96 08/09/18 01:27 71 93 08/09/18 01:22 73 96 08/09/18 01:17 80 97 08/09/18 01:14 85 85 L 08/09/18 01:12 71 97 08/09/18 01:07 70 96 08/09/18 01:02 72 96 08/09/18 01:00 16 08/09/18 00:59 72 158/78 H 08/09/18 00:57 76 94 08/09/18 00:52 76 94 08/09/18 00:47 75 96 08/09/18 00:42 76 95 08/09/18 00:37 75 96 08/09/18 00:32 74 94 08/09/18 00:27 77 95 08/09/18 00:22 75 95 08/09/18 00:17 76 95 08/09/18 00:12 89 98 08/09/18 00:07 88 95 08/09/18 00:02 78 96 08/09/18 00:00 16 08/08/18 23:59 75 152/76 H 08/08/18 23:57 76 94 20 23:52 75 94 20 23:47 74 94 20 23:42 83 94 20 23:37 75 95 08/08/18 23:32 75 95 08/08/18 23:27 80 94 08/08/18 23:22 80 95 08/08/18 23:17 76 95 08/08/18 23:12 77 95 08/08/18 23:07 82 95 08/08/18 23:02 76 95 08/08/18 23:00 36.7 C 76 18 95 08/08/18 22:59 73 135/70 08/08/18 22:57 83 96 08/08/18 22:52 83 97 08/08/18 22:47 74 95 08/08/18 22:42 80 96 08/08/18 22:40 18 08/08/18 22:37 77 95 08/08/18 22:33 76 135/83 08/08/18 22:32 77 95 08/08/18 22:27 81 96 08/08/18 22:22 84 96 08/08/18 22:17 81 95 08/08/18 22:12 72 95 08/08/18 22:07 87 95 08/08/18 22:03 75 164/79 H 08/08/18 22:02 76 96 08/08/18 22:00 16 08/08/18 21:57 82 95 08/08/18 21:52 79 94 08/08/18 21:48 83 88 L 08/08/18 21:47 75 92 08/08/18 21:42 75 96 08/08/18 21:37 80 95 08/08/18 21:33 70 147/72 H 08/08/18 21:32 73 97 08/08/18 21:27 73 95 08/08/18 21:22 71 95 08/08/18 21:17 73 94 08/08/18 21:12 75 94 08/08/18 21:07 82 96 08/08/18 21:03 71 153/76 H 08/08/18 21:02 70 95 08/08/18 21:00 18 08/08/18 20:57 71 95 08/08/18 20:52 73 94 08/08/18 20:47 73 94 08/08/18 20:42 79 95 08/08/18 20:37 74 97 08/08/18 20:33 74 159/84 H 08/08/18 20:32 75 95 08/08/18 20:27 75 94 08/08/18 20:22 80 94 08/08/18 20:17 77 95 08/08/18 20:12 76 95 08/08/18 20:07 82 96 08/08/18 20:03 75 161/78 H 08/08/18 20:02 73 97 08/08/18 20:00 18 08/08/18 19:57 78 95 08/08/18 19:52 78 95 08/08/18 19:47 86 96 08/08/18 19:42 88 96 08/08/18 19:37 78 95 08/08/18 19:33 81 156/85 H 08/08/18 19:32 83 96 08/08/18 19:27 83 96 08/08/18 19:22 75 96 Laboratory Results Laboratory Results - last 24 hr 08/08/18 08/08/18 08/08/18 11:00 11:00 11:00 WBC 14.97 H RBC 3.61 L Hgb 10.7 L Hct 31.8 L MCV 88.1 MCH 29.6 MCHC 33.6 RDW Std Deviation 44.7 RDW Coeff of Melanie 13.8 Plt Count 411 H MPV 9.5 Immature Gran % (Auto) Neut % (Auto) Lymph % (Auto) [place] % (Auto) Eos % (Auto) Baso % (Auto) Immature Gran # (Auto) Neut # (Auto) Lymph # (Auto) [place] # (Auto) Eos # (Auto) Baso # (Auto) Sodium 144 Potassium 3.7 Chloride 111 H Carbon Dioxide 24 Anion Gap 10.0 BUN 15 Creatinine 0.78 Est Cr Clr Drug Dosing 120.7 Est GFR ( Amer) 117.4 Est GFR (Non-Af Amer) 101.3 BUN/Creatinine Ratio 19.5 Glucose 84 Uric Acid 7.9 H Calcium 9.2 Magnesium (Sulf Ther) Total Bilirubin 0.2 AST 18 ALT 23 Alkaline Phosphatase 74 Total Protein 6.0 L Albumin 2.1 L Globulin 3.9 Albumin/Globulin Ratio 0.5 L 08/08/18 08/08/18 08/08/18 11:00 17:22 17:22 WBC 12.85 H RBC 3.61 L Hgb 10.9 L Hct 31.3 L MCV 86.7 MCH 30.2 MCHC 34.8 RDW Std Deviation 43.9 RDW Coeff of Melanie 13.8 Plt Count 404 H MPV 9.7 Immature Gran % (Auto) 1.2 Neut % (Auto) 64.5 Lymph % (Auto) 23.7 [place] % (Auto) 7.3 Eos % (Auto) 3.0 Baso % (Auto) 0.3 Immature Gran # (Auto) 0.16 H Neut # (Auto) 8.27 H Lymph # (Auto) 3.05 [place] # (Auto) 0.94 H Eos # (Auto) 0.39 Baso # (Auto) 0.04 Sodium Potassium Chloride Carbon Dioxide Anion Gap BUN Creatinine Est Cr Clr Drug Dosing Est GFR ( Amer) Est GFR (Non-Af Amer) BUN/Creatinine Ratio Glucose Uric Acid Calcium Magnesium (Sulf Ther) 3.8 L 5.9 Total Bilirubin AST ALT Alkaline Phosphatase Total Protein Albumin Globulin Albumin/Globulin Ratio 08/08/18 08/08/18 08/08/18 17:22 22:49 22:49 WBC 12.74 H RBC 3.42 L Hgb 10.1 L Hct 30.0 L MCV 87.7 MCH 29.5 MCHC 33.7 RDW Std Deviation 45.1 RDW Coeff of Melanie 13.9 Plt Count 394 MPV 9.3 Immature Gran % (Auto) 1.4 Neut % (Auto) 63.4 Lymph % (Auto) 24.3 [place] % (Auto) 7.1 Eos % (Auto) 3.5 Baso % (Auto) 0.3 Immature Gran # (Auto) 0.18 H Neut # (Auto) 8.07 H Lymph # (Auto) 3.10 [place] # (Auto) 0.90 H Eos # (Auto) 0.45 Baso # (Auto) 0.04 Sodium 141 142 Potassium 3.6 3.7 Chloride 109 H 108 H Carbon Dioxide 24 26 Anion Gap 9.0 8.0 BUN 12 12 Creatinine 0.63 0.78 Est Cr Clr Drug Dosing 149.5 120.7 Est GFR ( Amer) 138.5 117.4 Est GFR (Non-Af Amer) 119.5 101.3 BUN/Creatinine Ratio 19.6 15.2 Glucose 84 86 Uric Acid Calcium 8.9 8.3 L Magnesium (Sulf Ther) 6.0 Total Bilirubin 0.2 0.1 L AST 19 20 ALT 23 25 Alkaline Phosphatase 74 71 Total Protein 5.9 L 5.7 L Albumin 2.1 L 1.9 L Globulin 3.8 3.8 Albumin/Globulin Ratio 0.6 L 0.5 L 08/09/18 08/09/18 08/09/18 05:23 05:23 05:23 WBC 10.84 H RBC 3.51 L Hgb 10.2 L Hct 30.6 L MCV 87.2 MCH 29.1 MCHC 33.3 RDW Std Deviation 45.2 RDW Coeff of Melaine 14.2 Plt Count 388 MPV 9.6 Immature Gran % (Auto) 1.1 Neut % (Auto) 63.6 Lymph % (Auto) 24.4 [place] % (Auto) 7.0 Eos % (Auto) 3.6 Baso % (Auto) 0.3 Immature Gran # (Auto) 0.12 H Neut # (Auto) 6.89 H Lymph # (Auto) 2.65 [place] # (Auto) 0.76 H Eos # (Auto) 0.39 Baso # (Auto) 0.03 Sodium 142 Potassium 3.7 Chloride 107 Carbon Dioxide 25 Anion Gap 9.0 BUN 11 Creatinine 0.71 Est Cr Clr Drug Dosing 132.6 Est GFR ( Amer) 131.5 Est GFR (Non-Af Amer) 113.5 BUN/Creatinine Ratio 14.7 Glucose 87 Uric Acid Calcium 8.0 L Magnesium (Sulf Ther) 6.6 Total Bilirubin 0.2 AST 20 ALT 25 Alkaline Phosphatase 74 Total Protein 5.7 L Albumin 2.0 L Globulin 3.7 Albumin/Globulin Ratio 0.5 L Medications Administered Current Inpatient Medications Lactated Ringer's (Lr) 1,000 mls @ 125 mls/hr IV .Q8H PRN; Protocol PRN Reason: L&D Protocol Stop: 08/10/18 10:47 Last Infusion: 08/09/18 07:04 Dose: 75 mls/hr Documented by: Magnesium Sulfate (Magnesium Sulfate / Wtr) 40 gm in 1,000 mls @ 50 mls/hr IV .Q20H HEATHER Stop: 09/07/18 10:59 Last Infusion: 08/09/18 07:04 Dose: 50 mls/hr Documented by: Labetalol HCl (Normodyne) 100 mg PO BID HEATHER Stop: 09/08/18 08:59 Last Admin: 08/09/18 07:14 Dose: 100 mg Documented by: <Sandra Renteria DO - Last Filed: 08/09/18 07:51> Co-Signing Physician Notes 33yo PPD#5 with preeclampsia with severe features. Has been treated with magnesium x 24h. Started mag at 11:30 yesterday morning. Preeclampsia labs have been normal. BPs 130-170/70-90s. Has had some elevated BPs this morning, plan to give PO labetalol in the hopes will be able to discharge on this. Feeling well today, has baby in the room. Lung sounds are clear, DTR 2+. SCDs in place. Last mag level 6.6. If BP controlled, plan is to stop mag at 11:30 and plan for discharge. She will likely need PO labetalol rx for home. Resident Activity Tracking <Lopez Mueller DO - Last Filed: 08/09/18 07:31> Resident Involvement: Resident Care Provided Care Provided: OB Delivery
[2018-08-09] MEDS ORDERED: LABETALOL HCL 100 MG TAB PO SCH (09:00)
[2018-08-09 11:28] LABS: Basophils # (auto) 0.03 K/uL (0-0.2); Basophils % (auto) 0.3 %; Eosinophils # (auto) 0.35 K/uL (0-0.5); Hematocrit (blood only) 31.1 % (37-47); Hemoglobin 10.5 g/dL (12.0-16.0); Immature Granulocytes # (auto) 0.13 K/uL (0.00-0.02); Immature Granulocytes % (auto) 1.1 %; Lymphocytes # (auto) 2.21 K/uL (1.2-3.4); Lymphocytes % (auto) 18.7 %; Mean Corpuscular Hgb Conc 33.8 g/dL (32-36); Mean Corpuscular Volume 88.1 fL (80-100); Monocytes # (auto) 0.77 K/uL (0.11-0.59); Monocytes % (auto) 6.5 %; Neutrophils % (auto) 70.4 %; Platelet Count 404 K/uL (130-400); RDW Standard Deviation 45.2 fL (36.4-46.3); Red Blood Count 3.53 M/uL (4.2-5.4); White Blood Count 11.79 K/uL (4.8-10.8)
[2018-08-09 12:05] LABS: Albumin Globulin Ratio 0.6 (0.9-2); Albumin Level 2.1 gm/dl (3.4-5.0); BUN Creatinine Ratio 13.9 (10-20); Bilirubin,Total 0.2 mg/dl (0.2-1); Calcium 7.8 mg/dl (8.5-10.1); Creatinine Clr Calc Pharmacy 134.5 ml/min; Est GFR (African American) 133.8; Est GFR (Non-African American) 115.5; Globulin 3.7 gm/dl (2.5-4.0); Potassium 4.1 mmol/L (3.5-5.1); Total Protein 5.8 gm/dl (6.4-8.2)
--- NOTE | 2018-08-09 12:51 | Obstetrical Progress Note ---
Date of Service August 09, 2018 Assessment & Plan (1) Pre-eclampsia, severe, delivered: -Patient has completed 24 hours of magnesium - Patient started on labetalol 100 mg p.o. twice daily -We will discharge home on this dosage and she will follow-up in the office in 1 week for a blood pressure check -All questions answered of the patient Subjective No complaint of back pain, headaches, or blurred vision Results & Data Vital Signs (Past 12 Hours) Vital Signs Temp Pulse Resp BP Pulse Ox 08/09/18 12:47 79 97 08/09/18 12:42 75 96 08/09/18 12:37 73 96 08/09/18 12:32 77 96 08/09/18 12:27 79 97 08/09/18 12:22 74 97 08/09/18 12:17 72 95 08/09/18 12:12 73 167/89 H 95 08/09/18 12:07 75 97 08/09/18 12:02 75 93 08/09/18 11:57 70 96 08/09/18 11:52 71 96 08/09/18 11:47 69 97 08/09/18 11:42 72 96 08/09/18 11:37 78 97 08/09/18 11:32 75 97 08/09/18 11:27 74 141/90 H 97 08/09/18 11:22 74 96 08/09/18 11:17 88 97 08/09/18 11:12 76 96 08/09/18 11:07 69 96 08/09/18 11:02 71 96 08/09/18 11:00 20 08/09/18 10:57 69 96 08/09/18 10:52 70 95 08/09/18 10:47 68 94 08/09/18 10:42 71 136/88 95 08/09/18 10:37 91 H 96 08/09/18 10:32 74 94 08/09/18 10:27 75 93 08/09/18 10:22 78 94 08/09/18 10:17 76 96 08/09/18 10:12 75 94 08/09/18 10:07 84 95 08/09/18 10:02 80 95 08/09/18 10:00 20 08/09/18 09:57 79 140/81 96 08/09/18 09:52 83 95 08/09/18 09:47 78 95 19 09:42 79 95 0619 09:37 75 95 08/09/18 09:32 85 96 08/09/18 09:27 84 95 08/09/18 09:22 88 96 0619 09:20 16 08/09/18 09:17 78 95 19 09:12 81 139/85 96 08/09/18 09:07 85 96 08/09/18 09:02 90 95 08/09/18 08:57 84 96 08/09/18 08:52 83 97 08/09/18 08:47 82 96 08/09/18 08:42 89 98 08/09/18 08:37 76 96 08/09/18 08:32 77 97 08/09/18 08:27 71 144/86 H 96 08/09/18 08:26 16 08/09/18 08:22 83 97 08/09/18 08:17 74 96 08/09/18 08:12 78 95 08/09/18 08:07 84 97 08/09/18 08:02 87 96 08/09/18 07:57 70 95 08/09/18 07:52 65 95 19 07:51 76 87 L 08/09/18 07:47 68 95 08/09/18 07:42 69 170/84 H 95 08/09/18 07:37 68 95 08/09/18 07:32 68 95 08/09/18 07:27 72 95 08/09/18 07:22 71 95 08/09/18 07:17 81 97 08/09/18 07:12 79 94 08/09/18 07:07 81 95 08/09/18 07:02 89 96 19 06:57 70 166/95 H 95 19 06:52 71 95 19 06:47 65 95 19 06:42 70 94 08/09/18 06:37 75 94 08/09/18 06:32 82 95 19 06:27 68 95 08/09/18 06:22 68 95 19 06:17 81 96 08/09/18 06:12 72 95 19 06:11 72 169/93 H 08/09/18 06:07 73 95 06/21/19 06:02 74 94 08/09/18 06:00 18 08/09/18 05:57 71 96 08/09/18 05:56 72 175/92 H 08/09/18 05:53 75 173/92 H 08/09/18 05:52 81 95 08/09/18 05:47 81 96 08/09/18 05:42 88 98 08/09/18 05:37 70 95 08/09/18 05:32 76 95 08/09/18 05:27 68 96 08/09/18 05:22 70 155/91 H 96 08/09/18 05:17 73 96 08/09/18 05:14 72 160/87 H 08/09/18 05:12 66 96 08/09/18 05:08 80 182/97 H 08/09/18 05:07 86 98 08/09/18 05:06 72 183/88 H 08/09/18 05:04 81 85 L 08/09/18 05:02 64 96 08/09/18 05:00 18 08/09/18 04:59 63 171/82 H 08/09/18 04:57 69 95 08/09/18 04:54 70 86 L 08/09/18 04:52 67 95 08/09/18 04:47 70 96 08/09/18 04:42 69 96 08/09/18 04:37 68 91 08/09/18 04:32 72 97 08/09/18 04:27 71 94 08/09/18 04:25 76 88 L 08/09/18 04:22 72 94 08/09/18 04:19 78 88 L 08/09/18 04:17 68 95 08/09/18 04:12 69 94 08/09/18 04:07 70 95 08/09/18 04:03 70 154/74 H 08/09/18 04:02 74 96 08/09/18 04:00 18 08/09/18 03:59 65 185/84 H 08/09/18 03:57 72 95 08/09/18 03:52 70 95 08/09/18 03:47 66 94 08/09/18 03:42 96 H 95 08/09/18 03:37 70 95 08/09/18 03:32 68 95 08/09/18 03:27 68 94 06/21/19 03:22 73 94 08/09/18 03:17 76 94 08/09/18 03:15 36.7 C 18 08/09/18 03:12 74 94 08/09/18 03:07 73 95 08/09/18 03:02 71 95 08/09/18 02:59 69 141/74 H 08/09/18 02:57 71 94 08/09/18 02:52 72 94 08/09/18 02:47 74 94 08/09/18 02:42 73 94 08/09/18 02:37 75 94 08/09/18 02:32 72 94 08/09/18 02:27 75 95 08/09/18 02:22 77 95 08/09/18 02:17 81 96 08/09/18 02:12 73 95 08/09/18 02:07 90 97 08/09/18 02:02 101 H 152/75 H 96 08/09/18 02:00 18 08/09/18 01:59 73 169/78 H 08/09/18 01:57 77 96 08/09/18 01:52 79 94 08/09/18 01:47 69 95 08/09/18 01:42 76 97 08/09/18 01:37 76 97 08/09/18 01:33 82 87 L 08/09/18 01:32 77 96 08/09/18 01:27 71 93 08/09/18 01:22 73 96 08/09/18 01:17 80 97 08/09/18 01:14 85 85 L 08/09/18 01:12 71 97 08/09/18 01:07 70 96 08/09/18 01:02 72 96 08/09/18 01:00 16 08/09/18 00:59 72 158/78 H 08/09/18 00:57 76 94 08/09/18 00:52 76 94
--- NOTE | 2018-08-14 23:58 | Discharge Summary ---
Date of Service August 14, 2018 Admission HPI Per Admitting Provider 33yo PPD #4 presents as transfer from [facility]. She presented there yesterday evening with complaint of left lower back pain. On arrival there, she was found to have elevated BPs with systolics in 190s. She denied headache, RUQ pain. +lower extremity swelling. She underwent CT scan, which showed left perinephric fat stranding with urothelial hyperenhancement. She was diagnosed with pyelonephritis at [facility] and given a dose of IV cipro for treatment. Because of her blood pressures, apparently the ER at [facility] attempted to admit the patient to the internal medicine service, but neither the hospitalist nor the critical care physicians felt that she should be admitted to those services because she was . Therefore, the ER physician at [facility] ED asked Dr Olvera (last night's OBGYN on-call at [facility]) to accept the patient as transfer. Patient at the time was unable to be transferred due to unstable blood pressures, but was brought to [facility] this morning. She rec'd 4g bolus of magnesium at [facility] and then 2g/hr magnesium, IV labetalol for BP management. The magnesium was then stopped prior to transport. Patient's labs at [facility] ED 08/08 0140am are as follows: WBC 18.9, Hgb 10.8, Hct 32, Plt 374. Creatinine 0.8, AST 21, ALT 25, Mag 1.9, Uric Acid 8.1. Urinalysis protein 2+, blood 3+, no nitrites. Induction was performed for delivery 08/04/18 for preeclampsia without severe features. She delivered by spontaneous vaginal delivery, was discharged to home PPD#2. She is bottle feeding. Minimal lochia. Hospital Course (1) Pre-eclampsia, severe, delivered: Patient was admitted as a transfer for severe preeclampsia. She recieved magnesium sulfate for 24h, BPs were controlled, and she was discharged home on 100mg labetalol BID. Followup in office in 1 week for BP check.
== END 2018-08-09 13:45 | disposition home or self-care (01) | DRG 776 ==
LOC: 4S1 10:40
DX: O14.15 Severe pre-eclampsia, complicating the puerperium; O99.335 Smoking (tobacco) complicating the puerperium; F17.210 Nicotine dependence, cigarettes, uncomplicated

== ENCOUNTER 2020-02-09 12:00 | Inpatient (IN) ==
--- NOTE | 2020-02-09 15:44 | Ultrasound Report ---
US OB BPP wo NST single CLINICAL HISTORY: non reactive NST COMPARISON STUDY: Biophysical profile February 02, 2020. TECHNIQUE: Transabdominal sonography of the fetus was performed to evaluate biophysical profile. FINDINGS: Single viable intrauterine gestation is noted. heart rate is normal 139 bpm. Amniotic fluid is within normal limits. movements, tone and breathing were within normal limits. Biophy sical profile is 8 out of 8. IMPRESSION: 1. Normal biophysical profile of 8 of 8. 2. Single viable intrauterine gestation. Normal heart rate. ACT 112: Negative or not required by law. Electronically signed by: Riacrdo Dumas M.D. 02/09/2020 3:43 PM
[2020-02-09] MEDS ORDERED: OXYTOCIN 30 UNITS/500 ML BAG IV PRN ×2 (16:16→21:55)
[2020-02-09 16:46] LABS: Hematocrit (blood only) 38.9 % (37-47); Hemoglobin 13.2 g/dL (12.0-16.0); Mean Corpuscular Hgb Conc 33.9 g/dL (32-36); Mean Corpuscular Volume 85.5 fL (80-100); Mean Platelet Volume 10.3 fL (7.4-10.4); Platelet Count 371 K/uL (130-400); RDW Coefficient of Variation 15.7 % (11.5-14.5); RDW Standard Deviation 49.4 fL (36.4-46.3); Red Blood Count 4.55 M/uL (4.2-5.4); White Blood Count 15.22 K/uL (4.8-10.8)
--- NOTE | 2020-02-09 17:12 | History & Physical Report ---
Date of Service February 09, 2020 Assessment & Plan Admission and Anticipated Discharge Date Admission Date: February 09, 2020 IUP at 38 weeks with GDM on insulin now in labor proteinuria without increased BP monitor BP & blood sugars in labor epidural when painful anticipate vaginal History of Present Illness Primary Care Provider: Tom Sharma MD Patient is a 34 yo white female who presents at L&D for prolonged monitoring because of non-reactive NST although reassuring tracing. prolonged monitoring has been Category 1 with a BPP 09/26. while she was being evaluated, s he has noted that her contractions have been getting stronger since arriving in L&D. she was 3-4 cm dilated in the office this morning and of recheck after the BPP she is now 4-5 cm dilated. GBS negative. COVID testing has not been done yet. complicated by GDM on insulin. She also was in the process of doing a 24 hour urine collection because of 3+ proteinuria today although BP's have been normal. She did have pre-eclampsia with her last . Allergies Allergy/AdvReac Type Severity Reaction Status Date / Time No Known Drug Allergies Allergy Verified 02/09/20 10:19 Home Medications Medication Instructions Recorded Confirmed Type prenat.vits,elli,[id number] 1 tab PO DAILY 07/21/19 02/09/20 History cetirizine 1 tab PO PRN PRN 07/30/19 02/09/20 History aspirin 81 mg chewable tablet 81 mg PO DAILY 10/06/19 02/09/20 History acetone (urine) test #50 ea 12/15/19 02/09/20 Rx blood sugar diagnostic #150 ea 12/15/19 02/09/20 Rx blood-glucose meter #1 ea 12/15/19 02/09/20 Rx lancets 33 gauge #150 ea 12/15/19 02/09/20 Rx insulin lispro 100 unit/mL See Rx Instructions SUBCUT TID #15 01/23/20 02/09/20 Rx subcutaneous pen ml pen needle, diabetic 32 gauge x #200 ea 01/23/20 02/09/20 Rx 5/32" insulin NPH isoph U-100 human 60 unit SUBCUT HS 02/09/20 02/09/20 History [Novolin N Flexpen] Patient History Medical History 37 weeks gestation of Constipation Gestational diabetes Insulin controlled Gestational proteinuria History of chicken pox Hypertension affecting with last 2019 Pre-eclampsia, severe, delivered Proteinuria affecting (spontaneous vaginal delivery) Urinary tract infection Had in begining of Vaginal delivery Surgical History H/O wisdom tooth extraction as a teenager Family History Father Hypertension Diabetes Pancreatic cancer Grandmother (Paternal) Macular degeneration Social History Smoking Status: Light tobacco smoker Age Quit Using Tobacco: 33; Second Hand Exposure: No; Do You Dip or Chew Tobacco: No; Tobacco Cessation Education Requested by Patient: No Hx Alcohol Use: No Hx Substance Use: No Preferred Language: Albanian Communication Ability: Effective Substance Addiction Coordinator Required: No Beliefs That Will Affect Care: None marital status: marital status details: Diana Ballard [phone] Current Living Situation: Spouse Current Living Situation Comment: lives with and his 9 year old daughter (shared custody) current occupational status: unemployed Feels Safe at Home: Yes Safety Concerns: Feels Safe At This Time Assistive Devices: None Review of Systems All systems reviewed & are unremarkable except as noted in HPI & below Physical Exam Constitutional: WD/WN, vitals as above Respiratory: normal respiratory effort, lungs clear to auscultation Cardiovascular: RRR, no murmur, no edema Gastrointestinal (Abdomen): normal bowel sounds, soft, nontender, no hepatosplenomegaly Psychiatric: A+Ox3, euthymic affect Genitourinary: Manual OB Exam: + cervical dilation 5 cm, + cervical effacement 90% and + station -2 OB Exam Monitor Tracing: + external FHT monitor used, + external uterine monitor used, + category I and + normal FHT variability Results & Data (MN) Vital Signs (Past 12 Hours) Vital Signs Temp Pulse Resp BP 02/09/20 15:23 81 144/78 H 02/09/20 14:03 75 129/71 02/09/20 12:16 97.7 F 20 02/09/20 12:05 99 H 130/67 02/09/20 12:04 97.7 F 20 Coding Level of Care Code None
[2020-02-09] MEDS ORDERED: SODIUM CHLORIDE 0.9% INJ 10 ML VIAL ONE (19:26)
[2020-02-09] MEDS ORDERED: BUPIVACAINE 0.25% 30 ML VIAL ONE (19:26)
[2020-02-09] MEDS ORDERED: ePHEDrine sulfate 50 MG/ML AMP ONE (19:26)
[2020-02-09] MEDS ORDERED: fentaNYL citrate 100 MCG/2 ML VIAL ONE (19:26)
[2020-02-09] MEDS ORDERED: fentaNYL 2MCG/ML ROPIVACAINE 1.25MG/ML 100 ML BAG EPI ONE (19:27)
[2020-02-09] MEDS: LACTATED RINGER'S 1,000 ML IV PRN ×2 (19:31→21:30)
[2020-02-09] MEDS ORDERED: NALOXONE HCL 1 MG in SODIUM CHLORIDE 0.9% 1000ML 1,000 ML IV PRN (19:47)
[2020-02-09] MEDS ORDERED: NALOXONE HCL 0.4 MG/1 ML VIAL/CARP IV PRN (19:47)
[2020-02-09] MEDS ORDERED: ONDANSETRON INJ 2 MG/ML 2 ML VIAL IV PRN (19:47)
[2020-02-09] MEDS ORDERED: ePHEDrine sulfate 50 MG/ML AMP IV PRN (19:47)
[2020-02-09] MEDS ORDERED: diphenhydrAMINE 50 MG/ML VIAL IV PRN (19:47)
--- NOTE | 2020-02-09 19:50 | Anesthesiology Consultation ---
Date of Service February 09, 2020 Assessment & Plan (1) Encounter for pre-operative examination: Chart Review Chart Review: Patient NOT seen in Pre Admission Testing and Acceptable Risk for Labor Epidural Consults Requested none History Height/Weight Height: 5 ft 3 in Weight: 107.955 kg Allergies Allergy/AdvReac Type Severity Reaction Status Date / Time No Known Drug Allergies Allergy Verified 02/09/20 10:19 Medications Home Medications Medication Instructions Recorded Confirmed Last Taken prenat.vits,elli,[id number] 1 tab PO DAILY 07/21/19 02/09/20 Unknown cetirizine 1 tab PO PRN PRN 07/30/19 02/09/20 Unknown aspirin 81 mg chewable tablet 81 mg PO DAILY 10/06/19 02/09/20 02/08/20 20:30 acetone (urine) test #50 ea 12/15/19 02/09/20 Unknown blood sugar diagnostic #150 ea 12/15/19 02/09/20 Unknown blood-glucose meter #1 ea 12/15/19 02/09/20 Unknown lancets 33 gauge #150 ea 12/15/19 02/09/20 Unknown insulin lispro 100 unit/mL See Rx Instructions SUBCUT TID #15 01/23/20 02/09/20 02/09/20 08:00 subcutaneous pen ml pen needle, diabetic 32 gauge x #200 ea 01/23/20 02/09/20 Unknown " insulin NPH isoph U-100 human 60 unit SUBCUT HS 02/09/20 02/09/20 02/08/20 20:30 [Novolin N Flexpen] Active Medications Generic Name Dose Route Start Last Admin Trade Name Freq PRN Reason Stop Dose Admin Lactated Ringer's 1,000 mls @ 125 mls/hr 02/09/20 16:16 02/09/20 19:31 Lr IV 02/11/20 16:15 999 mls/hr .Q8H PRN Administration L&D Protocol Protocol Past Medical History Medical History 37 weeks gestation of Constipation Gestational diabetes Insulin controlled Gestational proteinuria History of chicken pox Hypertension affecting with last 2018 Pre-eclampsia, severe, delivered Proteinuria affecting (spontaneous vaginal delivery) Urinary tract infection Had in begining of Vaginal delivery Exercise / Class Metabolic Activity II 4-5 Yardwork/Stairs/Walk up hill Past Family History Family History Father Hypertension Diabetes Pancreatic cancer Grandmother (Paternal) Macular degeneration Past Surgical History Surgical History H/O wisdom tooth extraction as a teenager Past Anesthesia History No Hx of Anesthesia Complications and No Family Hx of Anesthesia Complications History of PONV No Hx of PONV and No Hx of Motion Sickness Social History Smoking Status: Light tobacco smoker tobacco type: cigarettes Do You Dip or Chew Tobacco: No Hx Alcohol Use: No Hx Substance Use: No substance use type: does not use Physical Exam Vital Signs Last Vital Signs Temp 36.5 C 02/09/20 12:16 Pulse 85 02/09/20 20:09 Resp 20 02/09/20 12:16 BP 143/80 H 02/09/20 19:15 Pulse Ox 99 02/09/20 20:09 Testing Laboratory Results 02/09/20 16:37 02/09/20 02/09/20 18:33 16:33 POC Glucose 91 82
[2020-02-09] MEDS: fentaNYL 2MCG/ML ROPIVACAINE 1.25MG/ML 100 ML BAG EPI PRN (20:17)
[2020-02-10] MEDS: fentaNYL 2MCG/ML ROPIVACAINE 1.25MG/ML 100 ML BAG EPI PRN (04:03)
--- NOTE | 2020-02-10 05:46 | Delivery Summary ---
Vaginal Delivery Summary Date of Service Patient is a 34-year-old 2 para 1-0-0-1 white female who was sent from the office because of a nonreactive NST she is gestational diabetic on insulin her monitoring then became category 1 with a biophysical of 8 out of 8 was then noted that she was milton more regularly and had cervical change with 3 to 4 cm in the office to 5 cm dilated. After she received membranes were ruptured for clear fluid effective epidural analgesia. She received augmentation of her labor with Pitocin. and pushed effectively over intact perineum She progressed to full dilation for delivery of a viable female infant. The rest of the infant delivered easily and was placed on the mother's abdomen for further attention and drying. The infant was vigorous and moving all 4 limbs. The placenta was then expressed intact with a three-vessel cord. A first-degree vaginal laceration was repaired with 3-0 chromic in the usual fashion. Estimated blood loss was 200 cc. bleeding was controlled with dilute Pitocin. Mother and infant were doing well after delivery.February 10, 2020 [facility] [place] Vaginal Delivery Codes: 68157 global code for the antepartum, delivery, and post-
--- NOTE | 2020-02-10 07:37 | Anesthesia Procedure Note ---
Date of Service February 10, 2020 Anesthesia Post Epidural Note Vital Signs Vital Signs: Temp Pulse Resp BP Pulse Ox 37.3 C 95 H 18 144/69 H 97 02/10/20 07:13 02/10/20 07:25 02/10/20 07:13 02/10/20 07:25 02/10/20 05:34 Notes Mental Status: alert / awake / arousable and participated in evaluation Nausea / Vomiting: adequately controlled Pain: adequately controlled Airway Patency, RR, SpO2: stable & adequate BP & HR: stable & adequate Hydration State: stable & adequate Neuraxial Anesthesia: was administered and sensory block is resolving Anesthetic Complications: no major complications apparent Epidural: Removed without complications and With tip intact
[2020-02-10] MEDS ORDERED: IBUPROFEN 600 MG TAB PO PRN (08:24)
[2020-02-10] MEDS ORDERED: SUPERCREAM 0.870% 15 GM JAR EXT PRN (08:24)
[2020-02-10] MEDS ORDERED: DIPHTHERIA/TETANUS/PERTUSSIS 0.5 ML SYR/VIAL IM ONE (08:24)
[2020-02-10] MEDS ORDERED: ACETAMINOPHEN 325 MG TAB PO PRN (08:24)
[2020-02-10] MEDS ORDERED: oxyCODONE/ACETAMINOPHEN 5mg/325mg TAB PO PRN (08:24)
[2020-02-10] MEDS ORDERED: HYDROCORTISONE ACETATE 25 MG SUPP PR PRN (08:24)
[2020-02-10] MEDS ORDERED: BENZOCAINE 20% AER SPR 82.5 GM CAN EXT PRN (08:24)
[2020-02-10] MEDS ORDERED: bisacodyL 10 MG SUPP PR PRN (08:24)
[2020-02-10] MEDS ORDERED: OXYTOCIN 30 UNITS/500 ML BAG IV PRN (08:24)
[2020-02-10] MEDS ORDERED: PRENATAL VITAMIN 1 TAB ONE (08:36)
[2020-02-10] MEDS ORDERED: DOCUSATE SODIUM 100 MG CAP PO ONE (08:37)
[2020-02-10] MEDS ORDERED: DOCUSATE SODIUM 100 MG CAP PO SCH (21:00)
--- NOTE | 2020-02-11 06:02 | Obstetrical Progress Note ---
Date of Service <Lui Almonte MD - Last Filed: 02/11/20 07:15> February 11, 2020 Assessment & Plan <Lui Almonte MD - Last Filed: 02/11/20 07:15> (1) state: 34 y/o s/p on 02/10/20 at 38w, PPD1. A+. Rubella immune. Stable. Complicated by GIDM treated w/ insulin. - meeting all PP milestones. Ambulating, voiding, +BM, eating. - BPs reasonable: 146/87 this AM, normotensive overnight.. some elevated BPs prior to/near delivery, but ~normalized after. - bottle feeding per patient preference - continue routine care - dispo today (2) Insulin controlled gestational diabetes mellitus (GDM) during : - no longer on insulin since Subjective <Lui Almonte MD - Last Filed: 02/11/20 07:15> Ambulation: ambulating normally Voiding: no voiding problems Passing Gas:: Yes Diet Tolerance:: regular diet Lochia:: Small Feeding Type:: bottle feeding Current Pain Level(1-10): 0 No complaints. Pain is 0. Ambulating, eating, voiding, +BM. Bottle feeding without issues. Prefers dispo home today. Review of Systems Denies fever, chills, sweats Denies shortness of breath, chest pain, palpitations. Denies breast pain. Denies dysuria. Denies headache or changes in vision. Denies nausea/vomiting. Denies numbness, tingling, weakness. Physical Exam <Lui Almonte MD - Last Filed: 02/11/20 07:15> General: Alert, oriented. No acute distress. Cardiac: Regular rate and rhythm, no murmurs/rubs/gallops. Respiratory: Clear to auscultation bilaterally, no wheezes/rales/rhonchi. No respiratory distress. Abdomen: , soft, nontender. Uterus: Uterine fundus firm, palpable at umbilicus. Lower Extremities: 2+ LE edema No deep calf pain. Tiana's negative bilaterally. Results & Data ([facility]) <Lui Almonte MD - Last Filed: 02/11/20 07:15> Vital Signs (Past 12 Hours) Vital Signs Temp Pulse Resp BP Pulse Ox 02/11/20 04:15 36.6 C 83 16 146/87 H 96 02/10/20 23:45 36.6 C 89 16 127/85 96 02/10/20 20:05 36.7 C 85 16 130/86 98 Medications Administered <Vicki Whitlock MD, FACOG - Last Filed: 02/11/20 07:47> Co-Signing Physician Notes Resident Physician Supervision Note: I interviewed and examined the patient. Discussed with Dr. Almonte and agree with findings and plan as documented in the note. Any exceptions or clarifications are listed here: Doing well. Plan d/c home. Short term f/u with pcp regarding diabetes (diagnosed and started monitoring just before ). To resume diet and checking blood sugars like she did prior and f/u with pcp. Plan d/c. INstructions given. Documented By: Vicki Whitlock MD, FACOG
[2020-02-11] MEDS ORDERED: PRENATAL VITAMIN 1 TAB PO SCH (08:00)
[2020-02-11] MEDS ORDERED: bisacodyL 5 MG TABEC PO SCH (20:00)
== END 2020-02-11 11:15 | disposition home or self-care (01) | DRG 807 ==
LOC: OPB 12:00 → 4S1 12:03 → 4S2 02-10 08:12

== ENCOUNTER 2020-02-13 15:18 | Inpatient (IN) ==
[2020-02-13] MEDS ORDERED: MAG SULFATE 6GM BOLUS FROM BAG IV ONE (15:21)
--- NOTE | 2020-02-13 15:34 | History & Physical Report ---
Date of Service February 13, 2020 Assessment & Plan (1) Pre-eclampsia, : -Patient with markedly elevated blood pressures -+2 protein on urine in the emergency room -Preeclamptic labs otherwise within normal limits -Given the patient's previous history and markedly elevated blood pressures on presentation, diagnosis of preeclampsia -We will start magnesium with 4 g IV loading dose, then 2 g/h -We will check serial magnesium levels for therapeutic response -We will check serial CBC and liver function tests -We will follow blood pressure closely and start oral antihypertensive medications if indicated -With fluid management and issue, Omer catheter will be inserted -Patient to be at bedrest for 24 hours and STD stockings will be applied -Discussed care with the patient and all questions answered -Patient with a negative COVID-19 screen in the emergency room Present on Admission?: Yes (2) Insulin controlled gestational diabetes mellitus in puerperium: -We will check periodic BSG's but doubt need for insulin Present on Admission?: Yes Admission and Anticipated Discharge Date Admission Date: February 13, 2020 History of Present Illness Chief Complaint: Elevated blood pressure Primary Care Provider: Tom Sharma MD The patient is a 34-year-old 2 para 2, status post vaginal delivery on 02/09 with discharge 02/10, who presents to labor and delivery from the emergency room for elevated blood pressure and proteinuria. The patient had a home blood pressure cuff which noted markedly elevated diastolic blood pressures in the 120-130 range. Accompanying this the patient was complaining of back pain and headache. The patient was evaluated in the emergency room and was noted to have a diastolic of 120. She was given a dose of IV hydralazine and transferred to obstetrics for further management. The patient has a history of preeclampsia. Her first in 2019 was induced at 37 weeks gestational age for preeclampsia with mild features. She was discharged home and presented 5 days later to an outside hospital with elevated blood pressures and back pain. She was diagnosed with preeclampsia and transferred to [facility]. There she was treated with magnesium and hypertensive medications. She was discharged home and was not on antihypertensive long-term. With this the patient was noted to have normal blood pressures. At 35 weeks gestational age she developed +3 proteinuria. Preeclamptic labs were ordered and found to be within normal limits. At 39 weeks gestational age the patient was seen in the office and had nonreassuring heart rate tracing. She presented to labor and delivery where she was noted to be in labor and delivered 6 hours later. The patient had some mildly elevated blood pressures after delivery, but had normal preeclamptic labs. She was discharged home on 02/10. The patient's course was also remarkable for gestational diabetes, insulin requiring. Allergies Allergy/AdvReac Type Severity Reaction Status Date / Time No Known Drug Allergies Allergy Unknown Verified 02/13/20 15:29 Home Medications Medication Instructions Recorded Confirmed Type prenat.vits,elli,[id number] 1 tab PO QAM 07/21/19 02/13/20 History Patient History Medical History 37 weeks gestation of Constipation Gestational diabetes Insulin controlled Gestational proteinuria History of chicken pox Hypertension affecting with last 2019 Insulin controlled gestational diabetes mellitus (GDM) during state Pre-eclampsia Pre-eclampsia, severe, delivered Proteinuria affecting (spontaneous vaginal delivery) Urinary tract infection Had in begining of Vaginal delivery Surgical History H/O wisdom tooth extraction as a teenager Family History Father Hypertension Diabetes Pancreatic cancer Grandmother (Paternal) Macular degeneration Social History Smoking Status: Light tobacco smoker Tobacco Type: Cigarettes Age Quit Using Tobacco: 33; Cigarettes Per Day: 3; Second Hand Exposure: No; Do You Dip or Chew Tobacco: No; Tobacco Cessation Education Requested by Patient: No Hx Alcohol Use: No Hx Substance Use: No Preferred Language: Danish Communication Ability: Effective Foam Rubber Mixer Required: No Beliefs That Will Affect Care: None marital status: marital status details: Diana Ballard (40) [phone] Current Living Situation: Family Current Living Situation Comment: and 2 children current occupational status: unemployed Other Information That Helps Us Care for You: No Feels Safe at Home: Yes Safety Concerns: Feels Safe At This Time Assistive Devices: None Physical Exam Constitutional: WD/WN, vitals as above Respiratory: Auscultation: lungs clear to auscultation bilaterally Cardiovascular: RRR, no murmur, no edema Extremities: + edema ((+)3); no calf tenderness Gastrointestinal (Abdomen): Fundus below umbilicus Neurologic: deep tendon reflexes 2+ bilaterally (no clonus) Genitourinary: deferred Results & Data ([facility]) Vital Signs (Past 12 Hours) Vital Signs Temp Pulse Resp BP Pulse Ox 02/13/20 15:24 84 98 02/13/20 15:19 84 98 02/13/20 15:17 98.4 F 20 98 02/13/20 15:14 76 150/81 H 02/13/20 14:59 76 137/77 Coding Level of Care Code 10092 Initial Inpt Care Lvl 3 Diagnoses Pre-eclampsia, O14.95 Insulin controlled gestational diabetes mellitus in puerperium O24.434
[2020-02-13] MEDS ORDERED: MAG SULFATE 4GM BOLUS FROM BAG IV ONE (15:39)
[2020-02-13] MEDS: LACTATED RINGER'S 1,000 ML IV SCH (15:56)
[2020-02-13] MEDS: MAGNESIUM SULFATE / WTR 40 GM/1,000 ML BAG IV SCH (16:02)
[2020-02-13] MEDS ORDERED: ACETAMINOPHEN 325 MG TAB PO PRN (18:26)
[2020-02-13] MEDS: IBUPROFEN 600 MG TAB PO PRN (19:08)
[2020-02-13] MEDS ORDERED: hydrALAZINE HCL 20 MG/ML VIAL IV STA (19:47)
[2020-02-13] MEDS: amLODIPine BESYLATE 5 MG TAB PO SCH (20:25)
[2020-02-13 22:00] LABS: Basophils # (auto) 0.05 K/uL (0-0.2); Basophils % (auto) 0.3 %; Eosinophils # (auto) 0.38 K/uL (0-0.5); Eosinophils % (auto) 2.6 %; Hematocrit (blood only) 38.5 % (37-47); Hemoglobin 12.6 g/dL (12.0-16.0); Immature Granulocytes # (auto) 0.09 K/uL (0.00-0.02); Immature Granulocytes % (auto) 0.6 %; Lymphocytes # (auto) 2.51 K/uL (1.2-3.4); Lymphocytes % (auto) 17.3 %; Mean Corpuscular Hemoglobin 28.1 pg (25-34); Mean Corpuscular Hgb Conc 32.7 g/dL (32-36); Mean Corpuscular Volume 85.7 fL (80-100); Mean Platelet Volume 9.6 fL (7.4-10.4); Monocytes # (auto) 1.12 K/uL (0.11-0.59); Monocytes % (auto) 7.7 %; Neutrophils # (auto) 10.36 K/uL (1.4-6.5); Neutrophils % (auto) 71.5 %; Platelet Count 361 K/uL (130-400); RDW Coefficient of Variation 15.5 % (11.5-14.5); RDW Standard Deviation 48.5 fL (36.4-46.3); Red Blood Count 4.49 M/uL (4.2-5.4); White Blood Count 14.51 K/uL (4.8-10.8)
[2020-02-13 22:21] LABS: Alanine Aminotransferase 26 U/L (12-78); Albumin Level 2.3 gm/dl (3.4-5.0); Alkaline Phosphatase 99 U/L (45-117); Aspartate Aminotransferase 20 U/L (15-37); Bilirubin Direct < 0.1 mg/dl (0-0.2); Bilirubin,Total 0.2 mg/dl (0.2-1); Magnesium Therapeutic L&D Only 4.6 mg/dL (4.0-8.0)
[2020-02-14] MEDS: IBUPROFEN 600 MG TAB PO PRN ×2 (03:14→15:43)
[2020-02-14] MEDS: LACTATED RINGER'S 1,000 ML IV SCH (03:17)
[2020-02-14 04:06] LABS: Basophils # (auto) 0.04 K/uL (0-0.2); Basophils % (auto) 0.3 %; Eosinophils # (auto) 0.36 K/uL (0-0.5); Hematocrit (blood only) 37.7 % (37-47); Hemoglobin 12.7 g/dL (12.0-16.0); Immature Granulocytes # (auto) 0.07 K/uL (0.00-0.02); Immature Granulocytes % (auto) 0.6 %; Lymphocytes # (auto) 2.58 K/uL (1.2-3.4); Lymphocytes % (auto) 21.7 %; Mean Corpuscular Hemoglobin 28.7 pg (25-34); Mean Corpuscular Hgb Conc 33.7 g/dL (32-36); Mean Corpuscular Volume 85.3 fL (80-100); Mean Platelet Volume 9.6 fL (7.4-10.4); Monocytes # (auto) 0.85 K/uL (0.11-0.59); Monocytes % (auto) 7.1 %; Neutrophils # (auto) 8.01 K/uL (1.4-6.5); Neutrophils % (auto) 67.3 %; Platelet Count 394 K/uL (130-400); RDW Coefficient of Variation 15.5 % (11.5-14.5); RDW Standard Deviation 48.4 fL (36.4-46.3); Red Blood Count 4.42 M/uL (4.2-5.4); White Blood Count 11.91 K/uL (4.8-10.8)
[2020-02-14 04:39] LABS: Alanine Aminotransferase 28 U/L (12-78); Albumin Level 2.3 gm/dl (3.4-5.0); Alkaline Phosphatase 104 U/L (45-117); Aspartate Aminotransferase 18 U/L (15-37); Bilirubin Direct < 0.1 mg/dl (0-0.2); Bilirubin,Total 0.3 mg/dl (0.2-1); Magnesium Therapeutic L&D Only 5.2 mg/dL (4.0-8.0); Total Protein 6.1 gm/dl (6.4-8.2)
[2020-02-14] MEDS: MAGNESIUM SULFATE / WTR 40 GM/1,000 ML BAG IV SCH (07:05)
--- NOTE | 2020-02-14 07:14 | Obstetrical Progress Note ---
Date of Service February 14, 2020 Assessment & Plan (1) Pre-eclampsia, : - Mg level therapeutic at 5.2 - Blood pressures have been acceptable after starting amlodipine - remainder of PIH labs WNL - pt diuresing nicely - will stop Mg at 1600 - will allow patient to eat - all questions answered of patient (2) Insulin controlled gestational diabetes mellitus in puerperium: - stable Admission and Anticipated Discharge Date Admission Date: February 13, 2020 Subjective no specific c/o Physical Exam Constitutional: WD/WN, vitals as above Respiratory: Auscultation: lungs clear to auscultation bilaterally Cardiovascular: RRR, no murmur, no edema Extremities: + edema ((+)2); no calf tenderness Gastrointestinal (Abdomen): Fundus firm below U Results & Data ([facility]) Vital Signs (Past 12 Hours) Vital Signs Temp Pulse Resp BP Pulse Ox 02/14/20 07:07 84 138/82 98 02/14/20 07:02 110 H 97 02/14/20 06:57 79 97 02/14/20 06:52 76 95 02/14/20 06:47 75 93 02/14/20 06:44 75 91 02/14/20 06:42 78 97 02/14/20 06:37 79 96 02/14/20 06:32 81 96 02/14/20 06:27 73 95 02/14/20 06:23 79 89 L 02/14/20 06:22 77 93 02/14/20 06:17 74 95 02/14/20 06:12 76 95 02/14/20 06:08 16 02/14/20 06:07 76 150/78 H 96 02/14/20 06:02 79 95 02/14/20 05:57 82 95 02/14/20 05:52 81 95 02/14/20 05:47 83 95 02/14/20 05:42 83 95 02/14/20 05:37 81 95 02/14/20 05:32 77 95 02/14/20 05:27 78 96 02/14/20 05:22 81 96 02/14/20 05:17 79 95 02/14/20 05:12 76 95 02/14/20 05:07 74 15 143/70 H 96 02/14/20 05:05 72 90 02/14/20 05:02 73 94 02/14/20 04:57 65 93 02/14/20 04:56 77 90 02/14/20 04:52 79 97 02/14/20 04:50 77 90 02/14/20 04:47 92 H 93 02/14/20 04:43 80 90 02/14/20 04:42 70 95 02/14/20 04:37 81 96 02/14/20 04:36 83 90 02/14/20 04:32 82 93 02/14/20 04:29 89 91 02/14/20 04:27 71 94 02/14/20 04:22 89 93 02/14/20 04:17 78 95 02/14/20 04:12 78 96 02/14/20 04:07 79 16 130/69 96 02/14/20 04:02 78 96 02/14/20 03:57 77 96 02/14/20 03:52 77 97 02/14/20 03:47 78 95 02/14/20 03:42 82 95 02/14/20 03:37 87 96 02/14/20 03:32 82 96 02/14/20 03:27 83 97 02/14/20 03:22 78 98 02/14/20 03:17 83 97 02/14/20 03:12 77 98 02/14/20 03:08 98.4 F 18 02/14/20 03:07 91 H 135/80 98 02/14/20 03:02 84 96 02/14/20 02:57 85 96 02/14/20 02:52 81 96 02/14/20 02:47 85 97 02/14/20 02:42 88 96 02/14/20 02:37 80 95 02/14/20 02:32 78 98 02/14/20 02:27 78 96 02/14/20 02:22 88 97 02/14/20 02:17 91 H 96 02/14/20 02:12 79 95 02/14/20 02:08 18 02/14/20 02:07 97 H 134/74 95 02/14/20 02:02 76 95 02/14/20 01:57 78 95 02/14/20 01:52 78 96 02/14/20 01:47 71 97 02/14/20 01:42 77 96 02/14/20 01:37 71 96 02/14/20 01:32 74 96 12/26/20 01:27 96 H 97 02/14/20 01:22 99 H 96 02/14/20 01:17 82 96 02/14/20 01:12 75 95 02/14/20 01:08 19 02/14/20 01:07 81 95 02/14/20 01:06 80 145/84 H 02/14/20 01:02 79 96 02/14/20 00:57 78 95 02/14/20 00:52 82 96 02/14/20 00:47 81 95 02/14/20 00:42 81 95 02/14/20 00:37 81 95 02/14/20 00:32 79 95 02/14/20 00:27 79 95 02/14/20 00:22 78 95 02/14/20 00:17 75 95 02/14/20 00:12 75 95 02/14/20 00:08 15 02/14/20 00:07 73 145/76 H 96 02/14/20 00:02 76 96 02/13/20 23:57 68 94 02/13/20 23:52 75 93 20 23:47 79 96 02/13/20 23:42 78 94 02/13/20 23:37 75 94 02/13/20 23:32 83 95 02/13/20 23:27 75 95 02/13/20 23:22 72 95 02/13/20 23:17 93 H 97 02/13/20 23:12 82 96 02/13/20 23:07 98.4 F 79 16 137/71 95 20 23:02 79 95 02/13/20 22:57 81 96 20 22:52 81 95 20 22:47 79 96 20 22:42 78 95 20 22:37 77 95 20 22:32 78 95 20 22:27 76 95 20 22:22 78 96 20 22:17 86 95 20 22:12 87 97 20 22:07 76 132/68 95 25/20 22:05 20 02/13/20 22:02 79 95 20 21:57 103 H 97 02/13/20 21:52 89 96 02/13/20 21:47 93 H 97 02/13/20 21:42 81 94 02/13/20 21:37 83 95 02/13/20 21:32 83 95 02/13/20 21:27 85 95 02/13/20 21:22 86 95 02/13/20 21:17 84 94 02/13/20 21:16 89 94 02/13/20 21:12 86 94 02/13/20 21:11 84 95 02/13/20 21:07 89 138/77 94 02/13/20 21:06 88 92 02/13/20 21:05 20 02/13/20 21:01 82 94 02/13/20 20:56 82 95 02/13/20 20:55 85 94 02/13/20 20:51 87 95 02/13/20 20:50 84 94 02/13/20 20:46 83 94 02/13/20 20:45 84 94 02/13/20 20:41 85 94 02/13/20 20:40 84 94 02/13/20 20:36 88 95 02/13/20 20:31 85 96 02/13/20 20:26 99 H 98 02/13/20 20:21 88 97 02/13/20 20:16 84 97 02/13/20 20:11 90 95 02/13/20 20:08 20 02/13/20 20:07 77 145/78 H 02/13/20 20:06 79 95 02/13/20 20:01 82 96 02/13/20 19:56 83 96 02/13/20 19:51 89 97 02/13/20 19:46 82 97 02/13/20 19:41 81 97 02/13/20 19:36 84 97 02/13/20 19:31 88 97 02/13/20 19:26 91 H 98 02/13/20 19:21 85 98 02/13/20 19:16 85 99 02/13/20 19:11 84 98 PG Care Time/CCT Total # of Minutes Spent Total Time Spent with Patient: Total time spent is greater than 50% in coordination of care (as documented) at patient's floor/unit and/or counseling patient: Coding Level of Care Code 91152 Subseq Hosp Care Lvl 2 Diagnoses Pre-eclampsia, O14.95 Insulin controlled gestational diabetes mellitus in puerperium O24.434
[2020-02-14] MEDS: amLODIPine BESYLATE 5 MG TAB PO SCH (09:01)
[2020-02-14] MEDS: SUPERCREAM 0.870% 15 GM JAR EXT PRN (12:30)
[2020-02-14 16:09] LABS: Basophils # (auto) 0.02 K/uL (0-0.2); Basophils % (auto) 0.2 %; Eosinophils # (auto) 0.27 K/uL (0-0.5); Hematocrit (blood only) 39.1 % (37-47); Immature Granulocytes # (auto) 0.05 K/uL (0.00-0.02); Immature Granulocytes % (auto) 0.6 %; Lymphocytes # (auto) 2.01 K/uL (1.2-3.4); Lymphocytes % (auto) 22.3 %; Mean Corpuscular Hemoglobin 28.5 pg (25-34); Mean Corpuscular Hgb Conc 33.2 g/dL (32-36); Mean Corpuscular Volume 85.7 fL (80-100); Mean Platelet Volume 9.6 fL (7.4-10.4); Monocytes # (auto) 0.81 K/uL (0.11-0.59); Neutrophils # (auto) 5.86 K/uL (1.4-6.5); Neutrophils % (auto) 64.9 %; Platelet Count 398 K/uL (130-400); RDW Coefficient of Variation 15.5 % (11.5-14.5); Red Blood Count 4.56 M/uL (4.2-5.4); White Blood Count 9.02 K/uL (4.8-10.8)
[2020-02-14 16:45] LABS: Alanine Aminotransferase 29 U/L (12-78); Albumin Level 2.3 gm/dl (3.4-5.0); Alkaline Phosphatase 107 U/L (45-117); Aspartate Aminotransferase 15 U/L (15-37); Bilirubin Direct < 0.1 mg/dl (0-0.2); Bilirubin,Total 0.1 mg/dl (0.2-1); Magnesium Therapeutic L&D Only 5.3 mg/dL (4.0-8.0); Total Protein 6.5 gm/dl (6.4-8.2)
[2020-02-14] MEDS ORDERED: amLODIPine BESYLATE 5 MG TAB PO ONE (20:37)
--- NOTE | 2020-02-14 20:48 | Communication Note ---
Date of Service: February 14, 2020 Patient chart reviewed, and recent BP noted. Value of 173/78 obtained, although on recheck it had dropped back to 155/77. I called L&D to inquire about this. Vicky RN relates that patient was up to BR just before the higher pressure, and was resting in bed with the recheck. Noelle came off of magnesium earlier this afternoon around 4pm, and at that time her RN Kathi relayed that she was diuresing very well, feeling better than she had in days, and BP's had been all in the normal to mild-HTN range. My concern is that although the patient continues to feel OK, her BP should not be rising into the severe range just because she is up to BR. Her antihypertensive, amlodipine 5mg daily, was selected and ordered by the prior on-call MD. This is not our typical antihypertensive, however it was recommended based on curbside consultation with a courtesy booth cashier, and was selected based on this patient's choice not to breastfeed as well as her history of significant proteinuria. She was well controlled on it through the earlier part of the day today. I would like to increase her amlodipine dose, and the next step up would be 7.5mg daily. To do that, we will give an additional 2.5mg "catchup" dose now to add onto the 5mg she got this morning, and we'll go to the full 7.5mg dose tomorrow AM. Because of this change I have asked that BP be checked Q2hr overnight and the nurse has parameters for contacting me.
[2020-02-14 22:57] LABS: Basophils # (auto) 0.02 K/uL (0-0.2); Basophils % (auto) 0.2 %; Eosinophils # (auto) 0.34 K/uL (0-0.5); Eosinophils % (auto) 3.6 %; Hemoglobin 12.4 g/dL (12.0-16.0); Immature Granulocytes # (auto) 0.06 K/uL (0.00-0.02); Immature Granulocytes % (auto) 0.6 %; Lymphocytes # (auto) 2.98 K/uL (1.2-3.4); Lymphocytes % (auto) 31.3 %; Mean Corpuscular Hemoglobin 28.7 pg (25-34); Mean Corpuscular Hgb Conc 33.5 g/dL (32-36); Mean Corpuscular Volume 85.6 fL (80-100); Mean Platelet Volume 9.6 fL (7.4-10.4); Monocytes # (auto) 0.71 K/uL (0.11-0.59); Monocytes % (auto) 7.5 %; Neutrophils % (auto) 56.8 %; Platelet Count 368 K/uL (130-400); RDW Coefficient of Variation 15.4 % (11.5-14.5); RDW Standard Deviation 48.9 fL (36.4-46.3); Red Blood Count 4.32 M/uL (4.2-5.4); White Blood Count 9.51 K/uL (4.8-10.8)
[2020-02-14 23:16] LABS: Alanine Aminotransferase 24 U/L (12-78); Albumin Level 2.2 gm/dl (3.4-5.0); Alkaline Phosphatase 98 U/L (45-117); Aspartate Aminotransferase 12 U/L (15-37); Bilirubin Direct < 0.1 mg/dl (0-0.2); Bilirubin,Total 0.2 mg/dl (0.2-1); Total Protein 6.2 gm/dl (6.4-8.2)
[2020-02-15 03:52] LABS: Basophils # (auto) 0.02 K/uL (0-0.2); Basophils % (auto) 0.2 %; Eosinophils # (auto) 0.35 K/uL (0-0.5); Eosinophils % (auto) 4.1 %; Hemoglobin 12.7 g/dL (12.0-16.0); Immature Granulocytes # (auto) 0.05 K/uL (0.00-0.02); Immature Granulocytes % (auto) 0.6 %; Lymphocytes % (auto) 34.7 %; Mean Corpuscular Hemoglobin 28.7 pg (25-34); Mean Corpuscular Hgb Conc 33.4 g/dL (32-36); Mean Platelet Volume 9.6 fL (7.4-10.4); Monocytes # (auto) 0.68 K/uL (0.11-0.59); Monocytes % (auto) 7.9 %; Neutrophils # (auto) 4.54 K/uL (1.4-6.5); Neutrophils % (auto) 52.5 %; Platelet Count 367 K/uL (130-400); RDW Coefficient of Variation 15.4 % (11.5-14.5); RDW Standard Deviation 48.7 fL (36.4-46.3); Red Blood Count 4.42 M/uL (4.2-5.4); White Blood Count 8.64 K/uL (4.8-10.8)
[2020-02-15 04:16] LABS: Alanine Aminotransferase 25 U/L (12-78); Albumin Level 2.3 gm/dl (3.4-5.0); Alkaline Phosphatase 95 U/L (45-117); Aspartate Aminotransferase 13 U/L (15-37); Bilirubin Direct < 0.1 mg/dl (0-0.2); Bilirubin,Total 0.2 mg/dl (0.2-1); Total Protein 6.2 gm/dl (6.4-8.2)
--- NOTE | 2020-02-15 06:23 | Communication Note ---
Date of Service: February 15, 2020 Blood pressures markedly improved after addition of 2.5mg dose. I'm concerned about possible dose-stacking if we give a full 7.5 for her morning dose as this is a 24-hr dosed drug, so to be cautious, will start with 5mg AM dose and observe today. Changed AM dose back to 5mg, ZULLY Enrique aware.
--- NOTE | 2020-02-15 07:37 | Obstetrical Progress Note ---
Date of Service February 15, 2020 Assessment & Plan (1) Pre-eclampsia, : BP normal to mild-range with significant improvement since additional 2.5mg given last night. Will keep 5mg daily dose of amlodipine today to avoid dose stacking and low BPs. Patient is very emotional this morning, crying because she wants to be home so badly. She feels physically well, denies any symptoms of PIH, and notes she actually feels better than she has "in weeks." Diuresis has been excellent, exam today is benign. Discussed the importance of symptom and BP monitoring today off of magnesium, but if all looks OK she could be cleared for D/C this afternoon. She is hoping for that. Subjective Ambulation: ambulating normally Voiding: no voiding problems Passing Gas:: Yes Diet Tolerance:: regular diet Lochia:: Small Current Pain Level(1-10): 0 Denies GAN, RUQ pain, vision change, n/v, and notes her edema continues to improve dramatically. "I feel better than I have in weeks - didn't realize how sick I was until I wasn't feeling sick anymore." Physical Exam Constitutional WD/WN, vitals as above Eyes PERRL, conjunctivae normal, anicteric sclerae ENMT external ear and nose normal, oropharynx normal Neck trachea midline, no thyromegaly Respiratory normal respiratory effort and able to speak in complete sentences; no respirato ry distress, no labored breathing and does not use accessory muscles Cardiovascular Rate/Rhythm: regular rate and regular rhythm Extremities: no calf tenderness trace pedal edema, able to palpate tendons on dorsum of foot with light touch. Chest (Breasts) Breast: normal inspection of breasts Gastrointestinal (Abdomen) Inspection/Auscultation: abdomen normal to inspection; abdomen not distended Musculoskeletal no cyanosis or clubbing, extremities motor strength 5/5 Skin no rashes, warm and dry Neurologic patellar DTR's 2+ bilat, sensation intact Psychiatric A+Ox3, euthymic affect Genitourinary Speculum/Bimanual Exam: uterus nontender OB Exam Abdomen: + fundal height (below umbilicus) Fundus: + firm Results & Data ([facility]) Vital Signs (Past 12 Hours) Vital Signs Temp Pulse Resp BP 02/15/20 05:48 67 138/76 02/15/20 03:48 97.7 F 76 16 127/85 02/15/20 01:48 74 16 129/68 02/14/20 23:46 63 140/75 02/14/20 23:30 98.4 F 73 16 165/88 H 02/14/20 21:28 64 140/68 02/14/20 21:12 64 170/74 H 02/14/20 21:10 18
[2020-02-15] MEDS ORDERED: amLODIPine BESYLATE 5 MG TAB PO SCH ×2 (09:00)
[2020-02-15] MEDS: IBUPROFEN 600 MG TAB PO PRN (11:29)
[2020-02-15] MEDS ORDERED: amLODIPine BESYLATE 5 MG TAB PO ONE (13:16)
[2020-02-16] MEDS: SUPERCREAM 0.870% 15 GM JAR EXT PRN (08:37)
[2020-02-16] MEDS ORDERED: amLODIPine BESYLATE 5 MG TAB PO SCH (09:00)
--- NOTE | 2020-02-17 08:36 | Discharge Summary ---
Date of Service February 17, 2020 Admission HPI Per Admitting Provider The patient is a 34-year-old 2 para 2, status post vaginal delivery on 02/09 with discharge 02/10, who presents to labor and delivery from the emergency room for elevated blood pressure and proteinuria. The patient had a home blood pressure cuff which noted markedly elevated diastolic blood pressures in the 120-130 range. Accompanying this the patient was complaining of back pain and headache. The patient was evaluated in the emergency room and was noted to have a diastolic of 120. She was given a dose of IV hydralazine and transferred to obstetrics for further management. The patient has a history of preeclampsia. Her first in 2018 was induced at 37 weeks gestational age for preeclampsia with mild features. She was discharged home and presented 5 days later to an outside hospital with elevated blood pressures and back pain. She was diagnosed with preeclampsia and transferred to [facility]. There she was treated with magnesium and hypertensive medications. She was discharged home and was not on antihypertensive long-term. With this the patient was noted to have normal blood pressures. At 35 weeks gestational age she developed +3 proteinuria. Preeclamptic labs were ordered and found to be within normal limits. At 39 weeks gestational age the patient was seen in the office and had nonreassuring heart rate tracing. She presented to labor and delivery where she was noted to be in labor and delivered 6 hours later. The patient had some mildly elevated blood pressures after delivery, but had normal preeclamptic labs. She was discharged home on 02/10. The patient's course was also remarkable for gestational diabetes, insulin requiring. Hospital Course (1) Pre-eclampsia, : Patient admitted with elevated blood pressure, headache, swelling, and proteinuria. Magnesium therapy for 24 hours with diuresis and resolution of symptoms. Blood pressure controlled with norvasc 7.5mg daily. Patient given Rx for home and arranged for BP follow up in office this coming week. Coding Level of Care Code 30549 OBS Care - Discharge Diagnoses Pre-eclampsia, O14.95
== END 2020-02-16 11:00 | disposition home or self-care (01) | DRG 776 ==
LOC: 4S1 → 4S2 02-15 15:40